=== PATIENT | female | born 1990 | race Caucasian/White ===

== ENCOUNTER 2020-09-18 09:59 | Outpatient (REF) | payer MEDICARE, MEDICAID, SELFPAY ==
[2020-09-18 11:27] LABS: MANUAL DIFF FLAG NO
[2020-09-18 11:38] LABS: Basophils Absolute Auto 0.1 X10*3/uL (0.0-0.2); Basophils Percent Auto 0.4 % (0-2); Eosinophils Absolute Auto 0.6 X10*3/uL (0.0-0.4); Eosinophils Percent Auto 4.9 % (0-4); Hematocrit 40.1 % (37-47); Hemoglobin 12.8 g/dl (12.0-16.0); Imm Gran Abs Auto 0.04 X10*3/uL (0.00-0.03); Imm Gran Pct Auto 0.3 % (0.0-0.4); Lymphocytes Absolute Auto 2.6 X10*3/uL (1.2-4.9); Lymphocytes Percent Auto 21.4 % (20-40); Mean Corpuscular HGB Conc 31.9 g/dl (31.0-35.0); Mean Corpuscular Hemoglobin 28.5 pg (27.0-33.0); Mean Corpuscular Volume 89.3 fL (80-98); Mean Platelet Volume 11.7 fL (9.4-12.3); Monocytes Absolute Auto 0.9 X10*3/uL (0.1-1.2); Monocytes Percent Auto 7.1 % (2-11); Neutrophils Absolute Auto 8.1 X10*3/uL (2.0-8.3); Neutrophils Percent Auto 65.9 % (45-73); Platelet Count 286 X10*3/uL (160-400); Red Blood Count 4.49 X10*6/uL (4.20-5.50); Red Cell Distribution Width 12.7 % (11.0-16.0); White Blood Count 12.3 X10*3/uL (4.8-10.8)
[2020-09-18 11:43] LABS: Estimated Average Glucose 94 mg/dL; Hemoglobin A1c % 4.9 %
[2020-09-18 12:07] LABS: Alanine Aminotransferase 35 U/L (0-31); Alkaline Phosphatase 95 U/L (39-117); Anion Gap 13 (12-20); Aspartate Amino Transferase 19 U/L (5-31); Bilirubin Total 0.8 mg/dL (0.0-1.0); Blood Urea Nitrogen 12 mg/dL (9-16); Calcium 8.9 mg/dL (8.4-10.2); Carbon Dioxide 29 mmol/L (22-29); Chloride 102 mmol/L (96-108); Cholesterol 181 mg/dL; Estimated Glomerular Filt Rate > 60; Glucose Fasting 86 mg/dL (60-99); HDL Cholesterol 49 mg/dL; LDL Cholesterol Calculated 114 mg/dl; Sodium 140 mmol/L (135-145); Total Protein 6.9 g/dL (6.5-8.0); Triglycerides 93 mg/dL
[2020-09-18 12:29] LABS: TSH reflex Free T4 1.83 mIU/mL (0.32-4.0); Vitamin D 25-OH Total 35.7 ng/mL (>30)
[2020-09-18 13:10] LABS: Folate 12.2 ng/mL (> or = 4.0); Vitamin B12 426 pg/mL (200-900)
== END 2020-09-18 10:00 | disposition home or self-care (01) ==
LOC: HO.HMGCLDS 09:59
PROVIDERS: PCP Internal Medicine; Visit Provider Internal Medicine
DX: Z00.01 Encounter for general adult medical examination with abnormal findings (principal); R14.0 Abdominal distension (gaseous); G47.19 Other hypersomnia; R53.83 Other fatigue; G47.33 Obstructive sleep apnea (adult) (pediatric); E66.01 Morbid (severe) obesity due to excess calories; K59.00 Constipation, unspecified; K21.9 Gastro-esophageal reflux disease without esophagitis; I10 Essential (primary) hypertension; L64.9 Androgenic alopecia, unspecified; E88.81 Metabolic syndrome and other insulin resistance; E55.9 Vitamin D deficiency, unspecified
CPT/HCPCS: 36415; 80053; 80061; 82306; 82607; 82746; 83036; 84443; 85025

== ENCOUNTER 2021-04-16 09:45 | Outpatient (REF) | payer MEDICARE, MEDICAID, SELFPAY ==
[2021-04-16 11:27] LABS: MANUAL DIFF FLAG NO
[2021-04-16 11:30] LABS: Basophils Percent Auto 0.4 % (0-2); Eosinophils Absolute Auto 0.2 X10*3/uL (0.0-0.4); Eosinophils Percent Auto 1.8 % (0-4); Hematocrit 39.4 % (37-47); Hemoglobin 12.4 g/dl (12.0-16.0); Imm Gran Abs Auto 0.04 X10*3/uL (0.00-0.03); Imm Gran Pct Auto 0.4 % (0.0-0.4); Lymphocytes Absolute Auto 2.8 X10*3/uL (1.2-4.9); Lymphocytes Percent Auto 24.7 % (20-40); Mean Corpuscular HGB Conc 31.5 g/dl (31.0-35.0); Mean Corpuscular Hemoglobin 27.5 pg (27.0-33.0); Mean Corpuscular Volume 87.4 fL (80-98); Monocytes Absolute Auto 0.7 X10*3/uL (0.1-1.2); Monocytes Percent Auto 6.2 % (2-11); Neutrophils Absolute Auto 7.6 X10*3/uL (2.0-8.3); Neutrophils Percent Auto 66.5 % (45-73); Platelet Count 269 X10*3/uL (160-400); Red Blood Count 4.51 X10*6/uL (4.20-5.50); Red Cell Distribution Width 13.2 % (11.0-16.0); White Blood Count 11.4 X10*3/uL (4.8-10.8)
[2021-04-16 12:02] LABS: Alanine Aminotransferase 26 U/L (0-31); Anion Gap 16 (12-20); Aspartate Amino Transferase 19 U/L (5-31); Blood Urea Nitrogen 10 mg/dL (9-16); Carbon Dioxide 24 mmol/L (22-29); Chloride 107 mmol/L (96-108); Cholesterol 168 mg/dL; Estimated Glomerular Filt Rate > 60; Glucose Fasting 87 mg/dL (60-99); HDL Cholesterol 46 mg/dL; LDL Cholesterol Calculated 100 mg/dl; Sodium 143 mmol/L (135-145); Triglycerides 113 mg/dL
== END 2021-04-16 09:46 | disposition home or self-care (01) ==
LOC: HO.HMGCLDS 09:45
PROVIDERS: Internal Medicine; PCP Internal Medicine; Visit Provider Internal Medicine
DX: E66.01 Morbid (severe) obesity due to excess calories (principal); E88.81 Metabolic syndrome and other insulin resistance; I10 Essential (primary) hypertension
CPT/HCPCS: 36415; 80048; 80061; 84450; 84460; 85025

== ENCOUNTER → 2021-08-21 15:33 | Outpatient (BNVA) | payer MEDICARE, MEDICAID, SELFPAY | PROVIDERS: PCP Internal Medicine; Referring Provider Internal Medicine; Visit Provider Nurse Practitioner | DX: K59.00 Constipation, unspecified (principal); K21.9 Gastro-esophageal reflux disease without esophagitis; K14.0 Glossitis | CPT/HCPCS: 99212 ==

== ENCOUNTER → 2021-08-31 12:33 | Outpatient (BNVA) | payer MEDICARE, MEDICAID, SELFPAY | PROVIDERS: PCP Internal Medicine; Visit Provider Advanced Practice Midwife ==

== ENCOUNTER 2021-12-17 09:37 | Outpatient (REF) | payer MEDICARE, MEDICAID, SELFPAY ==
[2021-12-17 15:44] LABS: CT PCR NOT DETECTED (Not Detect.); NG PCR NOT DETECTED (Not Detect.)
[2021-12-18 11:04] LABS: BV Int Neg Control Negative (Negative); BV Int Pos Control Positive (Positive)
[2021-12-19 20:51] LABS: HPV mRNA E6/E7 rflx Not Detected (Not Detected)
== END 2021-12-17 09:38 | disposition home or self-care (01) ==
LOC: HO.LAB 09:37
PROVIDERS: Visit Provider Advanced Practice Midwife
DX: Z01.419 Encounter for gynecological examination (general) (routine) without abnormal findings (principal); Z11.51 Encounter for screening for human papillomavirus (HPV); Z20.2 Contact with and (suspected) exposure to infections with a predominantly sexual mode of transmission
CPT/HCPCS: 81025; 87480; 87491; 87510; 87591; 87624; 87660; 88142

== ENCOUNTER 2021-12-31 09:48 | Outpatient (REF) | payer MEDICARE, MEDICAID, SELFPAY ==
[2021-12-31 11:24] LABS: MANUAL DIFF FLAG NO
[2021-12-31 11:35] LABS: Basophils Percent Auto 0.4 % (0-2); Eosinophils Absolute Auto 0.2 X10*3/uL (0.0-0.4); Eosinophils Percent Auto 2.2 % (0-4); Hematocrit 40.1 % (37.0-47.0); Hemoglobin 12.4 g/dl (12.0-16.0); Imm Gran Abs Auto 0.04 X10*3/uL (0.00-0.03); Imm Gran Pct Auto 0.4 % (0.0-0.4); Lymphocytes Absolute Auto 2.3 X10*3/uL (1.2-4.9); Lymphocytes Percent Auto 22.5 % (20-40); Mean Corpuscular HGB Conc 30.9 g/dl (31.0-35.0); Mean Corpuscular Hemoglobin 26.8 pg (27.0-33.0); Mean Corpuscular Volume 86.8 fL (80.0-98.0); Mean Platelet Volume 11.8 fL (9.4-12.3); Monocytes Absolute Auto 0.7 X10*3/uL (0.1-1.2); Monocytes Percent Auto 6.6 % (2-11); Neutrophils Percent Auto 67.9 % (45-73); Platelet Count 314 X10*3/uL (160-400); Red Blood Count 4.62 X10*6/uL (4.20-5.50); Red Cell Distribution Width 13.2 % (11.0-16.0); White Blood Count 10.3 X10*3/uL (4.8-10.8)
[2021-12-31 12:18] LABS: Vitamin D 25-OH Total 42.2 ng/mL (>30)
[2021-12-31 12:26] LABS: Alanine Aminotransferase 22 U/L (0-31); Anion Gap 11 (12-20); Aspartate Amino Transferase 37 U/L (5-31); Blood Urea Nitrogen 11 mg/dL (9-16); Calcium 9.4 mg/dL (8.4-10.2); Carbon Dioxide 32 mmol/L (22-29); Chloride 106 mmol/L (96-108); Cholesterol 159 mg/dL; Estimated Glomerular Filt Rate > 60; Glucose Fasting 97 mg/dL (60-99); HDL Cholesterol 42 mg/dL; LDL Cholesterol Calculated 91 mg/dl; Potassium 4.1 mmol/L (3.3-5.1); Sodium 145 mmol/L (135-145); Triglycerides 130 mg/dL
[2021-12-31 12:47] LABS: Vitamin B12 1493 pg/mL (200-900)
== END 2021-12-31 09:49 | disposition home or self-care (01) ==
LOC: HO.LAB 09:48
PROVIDERS: PCP Internal Medicine; Visit Provider Internal Medicine
DX: Z00.01 Encounter for general adult medical examination with abnormal findings (principal); R53.83 Other fatigue; E66.01 Morbid (severe) obesity due to excess calories; K59.00 Constipation, unspecified; I10 Essential (primary) hypertension; K21.9 Gastro-esophageal reflux disease without esophagitis; E88.81 Metabolic syndrome and other insulin resistance
CPT/HCPCS: 36415; 80048; 80061; 82306; 82607; 82746; 84450; 84460; 85025

== ENCOUNTER → 2022-04-09 13:08 | Outpatient (BNVA) | payer MEDICARE, MEDICAID, SELFPAY | PROVIDERS: PCP Internal Medicine; Visit Provider Surgery | DX: D18.00 Hemangioma unspecified site (principal) | CPT/HCPCS: 99202 ==

== ENCOUNTER 2022-05-10 07:17 | Outpatient (REF) | payer MEDICARE, MEDICAID, SELFPAY ==
[2022-05-10 07:51] VITALS: BP 133/84; PULSE 75; RESP 18; TEMP 36.6; O2SAT 98; BMI 55.8
--- NOTE | 2022-05-10 08:51 | P.OP_ITS ---
Operative Note Operative Note Date of Service: 05/10/22 Narrative: Preoperative diagnosis: Right scalp lesion x3, chest lesion x1 Postoperative diagnosis: Same Procedure: Excision of scalp lesion x3 and chest lesion x1 Surgeon: Ifeanyi Rasmussen MD Ride Mechanic: No physician Anesthesia: Local Indications for procedure: 32-year-old female patient presenting with 3 brown raised and irritated skin lesions with a wide base located in the right scalp 1 located in the frontal scalp 2nd located over the zoroastrianism parietal region in the 3rd located in the occipital region each lesion measured 5 mm in diameter. Lesion of the chest is red and tender to palpation measuring 0.7 mm in diameter. Operative findings: Lesions as noted above Specimen: Scalp lesion x3 right side on chest lesion x1 Estimated blood loss: 2 mL Complications: None Procedure details: Patient was brought to the minor surgery suite placed in a supine position. After assuring informed consent and confirming the site of surgery in the right scalp in mid chest, the skin was prepped with Betadine and draped in a sterile fashion. Beginning in the frontal scalp local anesthesia was infiltrated around the lesion. Elliptical incision was then created with a scalpel carried out through subcutaneous tissue. The lesion was excised and sent to pathology for further examination. Skin was closed using a single 4-0 nylon suture. The temporoparietal lesion was then anesthetized in a similar fashion an elliptical incision made around the lesion. Skin was then closed using interrupted 4-0 nylon suture. The anterior mid chest lesion was also prepped with Betadine and draped in a sterile fashion. Local was infiltrated around the lesion elliptical incision created in a transverse fashion. Lesion was excised in the wounds closed with 2 interrupted 4-0 nylon sutures. The patient's head was then turned to the left and the posterior/occipital lesion prepped with Betadine and draped in a sterile fashion. This was then anesthetized with lidocaine 1%. Elliptical incision was then made oriented longitudinally. This was then carried out through subcutaneous tissue and around the lesion. Skin was then closed using interrupted 3-0 Prolene sutures. Bacitracin was applied to the 3 scalp lesions. The chest lesion was chest would with 2 x 2 gauze and Tegaderm. The patient tolerated the procedure well. Was subsequently discharged to home in stable condition.
== END 2022-05-10 07:18 | disposition home or self-care (01) ==
LOC: HO.MS 07:17
PROVIDERS: PCP Internal Medicine; Visit Provider Surgery
PROC: (CPT 11401; principal; 2022-05-10 08:00)
DX: D18.01 Hemangioma of skin and subcutaneous tissue (principal); D23.4 Other benign neoplasm of skin of scalp and neck
CPT/HCPCS: 11401; 11420 ×3; 88304; 88305

== ENCOUNTER → 2022-08-30 14:02 | Outpatient (BNVA) | payer MEDICARE, MEDICAID, SELFPAY | PROVIDERS: PCP Internal Medicine; Visit Provider Nurse Practitioner | DX: K21.9 Gastro-esophageal reflux disease without esophagitis (principal); K59.04 Chronic idiopathic constipation; R14.0 Abdominal distension (gaseous) | CPT/HCPCS: 99212 ==

== ENCOUNTER 2022-12-30 10:01 | Outpatient (REF) | payer MEDICARE, MEDICAID, SELFPAY ==
[2022-12-30 14:57] LABS: CT PCR NOT DETECTED (Not Detect.); NG PCR NOT DETECTED (Not Detect.)
[2022-12-31 12:29] LABS: BV Int Neg Control Negative (Negative); BV Int Pos Control Positive (Positive)
[2023-01-02 00:54] LABS: HPV mRNA E6/E7 rflx Not Detected (Not Detected)
== END 2022-12-30 10:02 | disposition home or self-care (01) ==
LOC: HO.LNP 10:01
PROVIDERS: PCP Internal Medicine; Visit Provider Advanced Practice Midwife
DX: Z01.419 Encounter for gynecological examination (general) (routine) without abnormal findings (principal); Z11.51 Encounter for screening for human papillomavirus (HPV); Z20.2 Contact with and (suspected) exposure to infections with a predominantly sexual mode of transmission; E66.01 Morbid (severe) obesity due to excess calories; G47.33 Obstructive sleep apnea (adult) (pediatric)
CPT/HCPCS: 0353U; 87480; 87510; 87624; 87660; 88142

== ENCOUNTER 2023-04-15 14:15 | Outpatient (REF) | payer MEDICARE, MEDICAID, SELFPAY ==
[2023-04-15 16:37] LABS: MANUAL DIFF FLAG NO
[2023-04-15 16:43] LABS: Basophils Absolute Auto 0.1 X10*3/uL (0.0-0.2); Basophils Percent Auto 0.5 % (0-2); Eosinophils Absolute Auto 0.1 X10*3/uL (0.0-0.4); Eosinophils Percent Auto 0.9 % (0-4); Hematocrit 41.2 % (37.0-47.0); Imm Gran Abs Auto 0.03 X10*3/uL (0.00-0.03); Imm Gran Pct Auto 0.3 % (0.0-0.4); Lymphocytes Absolute Auto 2.2 X10*3/uL (1.2-4.9); Lymphocytes Percent Auto 21.2 % (20-40); Mean Corpuscular HGB Conc 31.6 g/dl (31.0-35.0); Mean Corpuscular Hemoglobin 27.9 pg (27.0-33.0); Mean Corpuscular Volume 88.4 fL (80.0-98.0); Mean Platelet Volume 12.7 fL (9.4-12.3); Monocytes Absolute Auto 0.5 X10*3/uL (0.1-1.2); Monocytes Percent Auto 4.6 % (2-11); Neutrophils Absolute Auto 7.6 x10*3/uL (2.0-8.3); Neutrophils Percent Auto 72.5 % (45-73); Platelet Count 281 X10*3/uL (160-400); Red Blood Count 4.66 X10*6/uL (4.20-5.50); White Blood Count 10.5 X10*3/uL (4.8-10.8)
[2023-04-15 17:19] LABS: TSH reflex Free T4 1.41 uIU/mL (0.32-4.0)
[2023-04-15 17:34] LABS: Folate 9.4 ng/mL (> or = 4.0); Vitamin B12 679 pg/mL (200-900)
== END 2023-04-15 14:16 | disposition home or self-care (01) ==
LOC: HO.HMGCLDS 14:15
PROVIDERS: PCP Internal Medicine; Visit Provider Internal Medicine
DX: R20.0 Anesthesia of skin (principal); R79.89 Other specified abnormal findings of blood chemistry
CPT/HCPCS: 36415; 82306; 82607; 82746; 84443; 85025

== ENCOUNTER 2023-06-04 09:41 | Outpatient (REF) | payer MEDICARE, MEDICAID, SELFPAY ==
--- NOTE | 2023-06-04 | EMG_ITS ---
Please see scanned EMG / Nerve Conduction Report. MTDD
== END 2023-06-04 09:42 | disposition home or self-care (01) ==
LOC: HO.NEURO 09:41
PROVIDERS: PCP Internal Medicine; Visit Provider Internal Medicine
DX: R20.0 Anesthesia of skin (principal)
CPT/HCPCS: 95860; 95885; 95907; 95911

== ENCOUNTER 2023-06-19 12:53 | Outpatient (AMB) | payer MEDICARE, MEDICAID, SELFPAY ==
--- NOTE | 2023-06-19 13:06 | A.OFFPC_ITS ---
Intake Visit Reasons: AWV Allergies topiramate [From TOPAMAX] Adverse Reaction (Severe, Verified 04/15/23 13:58) ELEVATED LIVER ENZYMES dogs, cats, trees Allergy (Unknown, Uncoded 04/15/23 13:58) Unknown surgical tape Allergy (Unknown, Uncoded 04/15/23 13:58) rash Tobacco use date assessed: 04/15/23 [facility] Medical History (Updated 04/28/23 @ 01:03 by Lizz Morse MD) Anal fissure Androgenic alopecia Constipation Depression with anxiety Environmental and seasonal allergies Essential hypertension Excessive daytime sleepiness Fatigue GERD (gastroesophageal reflux disease) Intertrigo Learning disability Metabolic syndrome X Mild intermittent asthma Morbid obesity Numbness of left lower extremity BRIANA (obstructive sleep apnea) Surgical History History of excision of lesion (05/10/22) History of tubal ligation History of wisdom tooth extraction Hx of cholecystectomy Family History Father Unknown family medical history Mother Cervical cancer Maternal Grandfather Lung disease Maternal Grandmother HTN (hypertension) CAD (coronary artery disease) CVD (cardiovascular disease) Smoker Myocardial infarction Paternal Grandfather Unknown family medical history Paternal Grandmother Unknown family medical history Sister No problems noted. Sister No problems noted. Sister No problems noted. Sister No problems noted. Social History Household Members: Friend(s) Housing: Apartment Alcohol intake: current Alcohol intake frequency: holidays/special occasions only Patient Tobacco Use Status: Never used Tobacco e-Cigarette/Vaping Use: Never Used Second Hand Smoke Exposure: No Current occupational status: unemployed and disabled Cognitive needs: No Hearing needs: No Vision needs: No Female Reproductive History Menstrual Age of Menarche: 9 Questionnaire Thrive Questionnaire Date Thrive assessed: 12/12/21 ELMER-7 AMB Questionnaire ELMER-7 Date ELMER - 7 assessed: 12/12/21 Source: Developed by Drs. Dario Ramos, Pinky De Jesus, Geo Calero and colleagues, with an educational alberto from [employer]. Physical exam (Primary Care) Tobacco/Smoking Status: Tobacco use Status Tobacco use date assessed 04/15/23 04/15/23 13:53 Patient Tobacco Use Status Never used Tobacco 04/15/23 13:53 e-Cigarette/Vaping Use Never Used 04/15/23 13:53 Thrive Assessment: Date of Thrive Assessment Date Thrive assessed 12/12/21 04/15/23 13:53 Coding Diagnoses
--- NOTE | 2023-06-19 13:07 | A.OFFVIS_ITS ---
Intake Vital Signs 06/19/23 13:08 Height 5 ft Weight 263 lb BMI 51.4 BP 118/78 Blood Pressure Location Lt brachial Position Sitting Pulse 90 Pulse Source Pulse Oximeter Pulse Oximetry (%) 99 Oxygen Delivery Method Room Air Intake Visit Reasons: AWV Allergies topiramate [From TOPAMAX] Adverse Reaction (Severe, Verified 06/19/23 13:23) ELEVATED LIVER ENZYMES dogs, cats, trees Allergy (Unknown, Uncoded 06/19/23 13:23) Unknown surgical tape Allergy (Unknown, Uncoded 06/19/23 13:23) rash Medication List - Last Reconciled 06/19/23 by Lizz Morse MD albuterol sulfate 90 mcg/actuation 2 puffs inhalation Q4-6H PRN amlodipine 10 mg PO BEDTIME atenolol 25 mg PO DAILY cholecalciferol (vitamin D3) 25 mcg PO DAILY fluoxetine 20 mg PO QAM fluticasone propion-salmeterol 250-50 mcg/dose 1 ea inhalation BID inhalational spacing device (BreatheRite MDI Spacer) As directed lisinopril 10 mg PO DAILY lubiprostone (Amitiza) 8 mcg PO BID melatonin 12 mg PO BEDTIME PRN montelukast 10 mg PO DAILY multivitamin 1 tab PO DAILY simethicone 180 mg PO QID 30 days Do you need a note to return to daycare/school/sports/work: No HPI AWV HPI Details AWV ?33 year old lady presents today for her ? Annual Wellness Visit, in itial visit.? She is accompanied today by her caregiver who works for [employer]. She is up-to-date with her cholesterol screening, last done 12/11/2021 with normal findings, she also had the diabetes screening done at that time again with normal findings. She goes to Sharmaine Bailey at [facility] for routine Pap and pelvic exam, last done 12/30/2022 with benign findings. She is up-to-date with her COVID vaccine, advised to get the new booster, gets yearly flu shots, up-to-date with her pneumo fax 23 vaccination and Tdap. ? Medical / Social History Reviewed? Past Medical History ?Yes . ? [place] of Care / Care Team list updated ?Yes . ? Surgical/Hospitalization History ?Yes . ? Current Medications (including OTC and supplements) ?Yes . ? Family History ?Yes . ? Tobacco Control form ?Yes . ? AUDIT-C (Alcohol use) form ?Yes . ? Illicit drug use in Social History ?Yes . ? Current diagnosis of depression? yes, with mood depressed over the last several weeks due to cup with boyfriend. They are having a problem with patient communicating with somebody overseas who is taking advantage for an asking her for money. Patient gets very upset when they warn her against him. She is currently not being seen by therapist, , as she has refused to see 1 in the past. ? Appropriate PHQ2/PHQ9 completed ?Yes . ? Data entered by ?Horticultural Agent and reviewed by provider ? Fall Risk ? Fall History? Have you had any falls with injury in the past year? ?No . ? Have you had two or more falls in the past year? ?No . ? Fall Risk Assessment: ?No falls in the past year . ? HRA filled out by the patient, reviewed by Provider and scanned. ?? AWV ? Balance? Romberg ?Yes . ? Tandem walk ?Yes . ? Walk and Turn ?Yes . ? Rise from sit to stand ?Yes . ?Vision? Corrective lens ?none ? Vision screen ? Up-to-date, unable to recall eye doctor seen ?Hearing? Whisper test ?pass . ?Written Plan?Completed. See Patient Documents.? [facility] Medical History (Updated 06/19/23 @ 14:02 by Lizz Morse MD) Anal fissure Androgenic alopecia Constipation Depression with anxiety Environmental and seasonal allergies Essential hypertension Excessive daytime sleepiness Fatigue GERD (gastroesophageal reflux disease) Intertrigo Learning disability Metabolic syndrome X Mild intermittent asthma Morbid obesity Numbness of left lower extremity BRIANA (obstructive sleep apnea) Surgical History History of excision of lesion (05/10/22) History of tubal ligation History of wisdom tooth extraction Hx of cholecystectomy Family History Father Unknown family medical history Mother Cervical cancer Maternal Grandfather Lung disease Maternal Grandmother HTN (hypertension) CAD (coronary artery disease) CVD (cardiovascular disease) Smoker Myocardial infarction Paternal Grandfather Unknown family medical history Paternal Grandmother Unknown family medical history Sister No problems noted. Sister No problems noted. Sister No problems noted. Sister No problems noted. Social History Household Members: Friend(s) Housing: Apartment Alcohol intake: current Alcohol intake frequency: holidays/special occasions only Patient Tobacco Use Status: Never used Tobacco e-Cigarette/Vaping Use: Never Used Second Hand Smoke Exposure: No Current occupational status: unemployed and disabled Cognitive needs: No Hearing needs: No Vision needs: No Female Reproductive History Menstrual Age of Menarche: 9 Questionnaire Medicare Wellness Checkup What gender do you identify with?: female During the past 4 weeks, how much have you been bothered by emotional problems such as feeling anxious, depressed, irritable, sad or downhearted, and blue?: slightly During the past 4 weeks, has your physical & emotional health limited your social activities with family, friends, neighbors, or groups?: slightly During the past 4 weeks, how much bodily pain have you generally had?: no pain During the past 4 weeks, was someone available to help you if you needed & wanted help?: yes, as much as I wanted During the past 4 weeks, what was the hardest physical activity you could do for at least 2 minutes?: very heavy Can you get to places out of walking distance without help? (For eg., can you travel alone on buses, taxis or drive your car?): Yes Can you go shopping for groceries or clothes without someone's help?: No Can you prepare your own meals?: Yes Can you do your housework without help?: Yes Because of any health problems, do you need the help of another person with your personal care needs such as eating, bathing, dressing or getting around the house?: No Can you handle your own money without help?: No During the past 4 weeks, how would you rate your health in general?: very good During the past 4 weeks how have things been going for you?: pretty well Are you having difficulties driving your car?: not applicable, I don't use a car Do you always fasten your seat belt when you are in a car?: yes, usually During past 4 weeks, have you been bothered by the following: never: Falling or dizzy when standing up, Problems using the telephone? and Tiredness or fatigue?, seldom: Teeth or denture problems? and sometimes: Trouble eating well? Have you fallen 2 or more times in the past year?: No Are you afraid of falling?: No Are you a smoker?: no During the past 4 weeks, how many drinks of wine, beer, or other alcoholic beverages did you have?: no alcohol at all Do you exercise for about 20 minutes 3 or more times a week?: yes, some of the time Have you been given information to help with the following?: yes: Hazards in your house that might hurt you? and yes: Keeping track of your medications? How often do you have trouble taking medicines the way you have been told to take them?: I always take medicine as prescribed How confident are you that you can control & manage most of your health problems?: somewhat confident What is your race?: Mini Mental State Exam (MMSE) Orientation What is the (year) (season) (date) (day) (month)?: year (Unable to state), season (summer), date (Unable to state), day (Unable to state) and month (Unable to state) Where are we (state) (county) (town or city) (hospital) (floor)?: state, county (Unable to state), town or city (Unable to state) and hospital/clinic (Unable to state) Score Score: 9 Activity of Daily Living Bathing - sponge bath, tub bath or shower: receives no assistance (gets in/out by self, if usual bathing means Dressing - getting clothes from closets & drawers, including inner/outer garments & fasteners.: gets clothes & gets completely dressed without help Toileting - going to the 'toilet room' for urine/bowel elimination & cleaning self/arranging clothes: goes to toilet room, cleans self, arranges clothes without help Transfer: moves in & out of bed and chair without help (may use support object) Continence: controls urination/bowel movements completely by self Feeding: feeds self without help Total Score: 0 Information obtained from: patient Using telephone: dependent Traveling: dependent Shopping: dependent Preparing meals: needs assistance Housework: needs assistance Taking medicine: dependent Managing money: dependent PHQ-9 Over the last 2 weeks, how often have you been bothered by any of the following problems? 1. Little interest or pleasure in doing things: several days 2. Feeling down, depressed, or hopeless: nearly every day 3. Trouble falling or staying asleep, or sleeping too much: nearly every day 4. Feeling tired or having little energy: nearly every day 5. Poor appetite or overeating: nearly every day 6. Feeling bad about yourself - or that you are a failure or have let yourself or your family down: nearly every day 7. Trouble concentrating on things, such as reading the newspaper or watching television: several days 8. Moving or speaking so slowly that other people could have noticed. Or the opposite - being so fidgety or restless that you have been moving around a lot more than usual: not at all 9. Thoughts that you would be better off or of hurting yourself in some way: not at all Total score: 17 Depression Screening Interpretation: Positive Depression Screening Follow-up: Community Mental Health Worker F/U [id number] - PHQ-9 Billing: Yes Source: Developed by Drs. Dario Ramos, Pinky De Jesus, Geo Calero and colleagues, with an educational alberto from [employer]. Physical Exam Vital Signs: Last Vital Signs Pulse 90 06/19/23 13:08 BP 118/78 06/19/23 13:08 Pulse Ox 99 06/19/23 13:08 Oxygen Delivery Method Room Air 06/19/23 13:08 BMI result Body Mass Index 51.4 Assessment & Plan Assessment & Plan (1) Encounter for initial annual wellness visit (AWV) in Medicare patient: Code(s): Z00.00 - Encounter for general adult medical examination without abnormal findings Plan: Medical wellness checklist discussed with patient caregiver reviewed and updated. Requested copy of any healthcare proxy or power of compliance attorney form from her guardian, to be scanned into medical record. (2) Metabolic syndrome X: Code(s): E88.81 - Metabolic syndrome (3) Androgenic alopecia: Comment: followed by Dr. Reed Code(s): L64.9 - Androgenic alopecia, unspecified Plan: Currently seen by dermatology (4) Essential hypertension: Comment: followed by Dr. Robb Code(s): I10 - Essential (primary) hypertension Plan: Continue on lisinopril 10 mg daily (5) Mild intermittent asthma: Code(s): J45.20 - Mild intermittent asthma, uncomplicated Qualifiers: Asthma complication type: uncomplicated Qualified Code(s): J45.20 - Mild intermittent asthma, uncomplicated Plan: Continue with fluticasone propionate-salmeterol inhaler 1 inhalation twice a day and on albuterol sulfate inhaler to be used as rescue for episodes of bronchospasm and wheezing (6) Constipation: Comment: started on Amitiza by February Harshal Code(s): K59.00 - Constipation, unspecified Plan: On Amitiza, followed by GI (7) Learning disability: Code(s): F81.9 - Developmental disorder of scholastic skills, unspecified (8) BRIANA (obstructive sleep apnea): Code(s): G47.33 - Obstructive sleep apnea (adult) (pediatric) (9) Morbid obesity: Code(s): E66.01 - Morbid (severe) obesity due to excess calories (10) Depression with anxiety: Code(s): F41.8 - Other specified anxiety disorders Plan: On fluoxetine, not controlled at present time, referred to [facility] Sharmaine Flores for assistance in getting in to be seen by therapist and psychiatry Quality Reporting (2019) Depression/Bipolar (159/160/161/177) PHQ-9: Total score: 17 Coding Level of Care Code Medicare First (G0438) Diagnoses Encounter for initial annual wellness visit (AWV) in Medicare patient Z00.00 Metabolic syndrome X E88.81 Androgenic alopecia L64.9 Essential hypertension I10 Mild intermittent asthma J45.20 Asthma complication type: uncomplicated Constipation K59.00 Learning disability F81.9 BRIANA (obstructive sleep apnea) G47.33 Morbid obesity E66.01 Depression with anxiety F41.8 CPT Codes Advance Care Planning - Time spent: 1-15 minutes, not on file ([id number]) Advance Care Planning Advance Care Planning discussion: Exists, not on file Date of discussion: 06/19/23 Who was present: Patient and caregiver Forms completed: None (Caregiver states that she will just provide us a copy of healthcare proxy.) Time spent: 1-15 minutes, not on file Actual minutes spent: 15
[2023-06-19 13:08] VITALS: BP 118/78; PULSE 90; O2SAT 99; BMI 51.4
== END 2023-06-19 14:10 | disposition home or self-care (01) ==
LOC: HO.HMGC 12:53
PROVIDERS: PCP Internal Medicine; Visit Provider Internal Medicine
DX: Z00.00 Encounter for general adult medical examination without abnormal findings (principal); I10 Essential (primary) hypertension; E66.01 Morbid (severe) obesity due to excess calories; Z68.43 Body mass index [BMI] 50.0-59.9, adult; J45.20 Mild intermittent asthma, uncomplicated; F41.8 Other specified anxiety disorders; E88.81 Metabolic syndrome and other insulin resistance; L64.9 Androgenic alopecia, unspecified; K59.00 Constipation, unspecified; F81.9 Developmental disorder of scholastic skills, unspecified; G47.33 Obstructive sleep apnea (adult) (pediatric)
CPT/HCPCS: 1124F; G0438

== ENCOUNTER 2023-08-20 11:55 | Outpatient (AMB) | payer MEDICARE, MEDICAID, SELFPAY ==
[2023-08-20 12:04] VITALS: BP 107/70; PULSE 66; BMI 49.0
--- NOTE | 2023-08-20 12:04 | A.OFFVIS_ITS ---
Intake Vital Signs 08/20/23 12:04 Height 5 ft Weight 250 lb 14.177 oz BMI 49.0 BP 107/70 Blood Pressure Location Rt brachial Position Sitting Pulse 66 Intake Visit Reasons: follow up missed March appt Intake Note: Patient presents to in office visit today in follow up of GERD. CC: Pt reports doing well today and denies having any GI issues or concerns. Quality Rep Required: No Accompanied by: Family/Other Allergies topiramate [From TOPAMAX] Adverse Reaction (Severe, Verified 08/20/23 12:06) ELEVATED LIVER ENZYMES dogs, cats, trees Allergy (Unknown, Uncoded 06/19/23 13:23) Unknown surgical tape Allergy (Unknown, Uncoded 06/19/23 13:23) rash HPI follow up missed March appt HPI Details Assessment & Plan (1) GERD (gastroesophageal reflux diseas e): Code(s): K21.9 - Gastro-esophageal reflux disease without esophagitis Plan: She is here today with a female friend who is supportive. She continues to do well on her amitiza 8mcg bid and her protonix bid. The only new problem is an abscess of her tooth, which will be pulled soon ROV 6 mos (2) Constipation: Comment: started on Amitiza by February Code(s): K59.00 - Constipation, unspecified Medications: Refilled lubiprostone (Pedro zuleima) 8 mcg PO BID 56 c aps 6RF K59.00 - Constipat ion, unspecified simethicone aft er meals 180 mg PO QID 30 days 120 caps 3RF R14.0 - Abdominal distension (gaseou s) Discontinued pantoprazole Di scontinued Reason: Doctor's Order 40 mg PO BID 60 t abs 1RF K21.9 - Gastro-eso phageal reflux dis ease without esoph agitis TODAY'S VISIT NO changes she continues to do well on her protonix bid, Amitiza 8mcg and simethicone. ROV 6 mos. [facility] Medical History (Updated 06/19/23 @ 14:02 by Lizz Morse MD) Environmental and seasonal allergies Numbness of left lower extremity Depression with anxiety Intertrigo Excessive daytime sleepiness Fatigue BRIANA (obstructive sleep apnea) Morbid obesity Anal fissure Constipation Learning disability GERD (gastroesophageal reflux disease) Mild intermittent asthma Essential hypertension Androgenic alopecia Metabolic syndrome X Surgical History History of excision of lesion (05/10/22) History of tubal ligation History of wisdom tooth extraction Hx of cholecystectomy Family History Father Unknown family medical history Mother Cervical cancer Maternal Grandfather Lung disease Maternal Grandmother HTN (hypertension) CAD (coronary artery disease) CVD (cardiovascular disease) Smoker Myocardial infarction Paternal Grandfather Unknown family medical history Paternal Grandmother Unknown family medical history Sister No problems noted. Sister No problems noted. Sister No problems noted. Sister No problems noted. Social History Household Members: Friend(s) Housing: Apartment Alcohol intake: current Alcohol intake frequency: holidays/special occasions only Patient Tobacco Use Status: Never used Tobacco e-Cigarette/Vaping Use: Never Used Second Hand Smoke Exposure: No Current occupational status: unemployed and disabled Cognitive needs: No Hearing needs: No Vision needs: No Female Reproductive History Menstrual Age of Menarche: 9 Review of Systems Const Denies fatigue, Denies fever(s), Denies night sweats, Denies poor appetite and Denies weight loss ENT Reports Normal hearing present, Denies dental pain, Denies dysphagia, Denies hearing loss, Denies mouth pain, Denies odynophagia, Denies throat swelling, Denies tongue swelling and Reports other (Dentition adequate) Card Reports no additional complaints Resp Reports no additional complaints GI Denies abdominal pain, Denies melena, Denies bloating, Denies hematochezia, Reports constipation, Denies GI cramping, Denies dysphagia, Denies excessive flatus, Denies early satiety, Reports heartburn, Denies diarrhea, Denies nausea, Denies odynophagia, Denies vomiting and Denies hematemesis Skin/Breast Denies pruritus, Denies lesions, Denies rash and Denies jaundice Neuro Reports Normal hearing present and Denies Abnormal speech present Endo Denies fatigue Aller/Immun Denies throat swelling and Denies tongue swelling Physical Exam Vital Signs: Last Vital Signs Pulse 66 08/20/23 12:04 BP 107/70 08/20/23 12:04 BMI result Body Mass Index 49.0 Const General: cooperative, no acute distress, well developed and well groomed Nutritional Appearance: well nourished and obese morbidly obese Orientation/consciousness: oriented to person, oriented to place and oriented to time Limitations: No language barrier and other limitations (Low cognitive function) HEENT Head: Yes normocephalic and Yes atraumatic Eyes General: appearance normal, both eyes and all related structures Pupils: Equal, round and reactive pupils present Neck Neck: Yes normal visual inspection and Yes no lymphadenopathy Thyroid: Thyroid normal Resp Effort & Inspection: normal respiratory effort and able to speak in complete sentences Auscultation: clear to auscultation bilaterally Cardio Rate: regular rate Rhythm: regular rhythm Heart sounds: Normal, physiologic split S2 sound present Peripheral pulses: radial pulses present and posterior tibial pulses present GI Inspection: No distended, Yes Abdominal panniculus present and Yes obesity Palpation (GI): Soft to palpation, nontender, no guarding, not rigid and No hepatosplenomegaly present Percussion: Yes normal to percussion Auscultation: normal bowel sounds Rectal Exam - Female: deferred Skin General skin exam: no rashes or lesions noted, turgor normal, skin not dry, no jaundice, No spider nevi and no striae Rashes: no rashes Nails: normal Neuro General: oriented to person, oriented to place and oriented to time Cranial nerves: Yes Equal, round and reactive pupils present and Yes Normal hearing present Speech: No Abnormal speech present Extrem General: Yes normal to inspection, No clubbing, No cyanosis and No edema Psych Appearance: grossly normal and well kempt Mental Status: mental status grossly normal Speech and movement: Normal speech and movement present Affect: normal affect Attitude: cooperative Thought process: not confabulating and Impoverished thought process present Thought content: Normal thought content present Insight: Poor insight present (Psych) Judgement: Poor judgement present (Psych) Assessment & Plan Assessment & Plan (1) Constipation: Comment: started on Amitiza by February Caputo Code(s): K59.00 - Constipation, unspecified Plan: NO changes she continues to do well on her protonix bid, Amitiza 8mcg and simethicone. The only problem is that her pantoprazole keeps getting discontinued off of her medication list but the person with her confirms that she still taking it twice a day. ROV 6 mos. (2) GERD (gastroesophageal reflux disease): Code(s): K21.9 - Gastro-esophageal reflux disease without esophagitis Medications: New pantoprazole (Protonix) 40 mg PO BID 30 days 60 tabs 6RF K21.9 - Gastro- esophageal reflux disease without esophagitis Refilled lubiprostone (Amitiza) 8 mcg PO BID 56 caps 6RF K59.00 - Constipation, unspecified simethicone after meals 180 mg PO QID 30 days 120 caps 6RF R14.0 - Abdominal distension (gaseous) Coding Level of Care Code Est Pt Level 3 (41693) Diagnoses Constipation K59.00 GERD (gastroesophageal reflux disease) K21.9
== END 2023-08-20 12:20 | disposition home or self-care (01) ==
PROVIDERS: PCP Internal Medicine; Visit Provider Nurse Practitioner
DX: K59.00 Constipation, unspecified (principal); K21.9 Gastro-esophageal reflux disease without esophagitis
CPT/HCPCS: 99213

== ENCOUNTER → 2023-08-20 11:55 | Outpatient (BNVA) | payer MEDICARE, MEDICAID, SELFPAY | PROVIDERS: PCP Internal Medicine; Visit Provider Nurse Practitioner | DX: K59.00 Constipation, unspecified (principal); K21.9 Gastro-esophageal reflux disease without esophagitis | CPT/HCPCS: 99212 ==

== ENCOUNTER 2024-01-07 10:32 | Outpatient (REF) | payer MEDICARE, MEDICAID, SELFPAY ==
[2024-01-08 04:31] LABS: CT PCR NOT DETECTED (Not Detect.); NG PCR NOT DETECTED (Not Detect.)
[2024-01-08 11:11] LABS: BV Int Neg Control Negative (Negative); BV Int Pos Control Positive (Positive)
== END 2024-01-07 10:33 | disposition home or self-care (01) ==
LOC: HO.LNP 10:32
PROVIDERS: PCP Internal Medicine; Visit Provider Advanced Practice Midwife
DX: Z01.419 Encounter for gynecological examination (general) (routine) without abnormal findings (principal); Z20.2 Contact with and (suspected) exposure to infections with a predominantly sexual mode of transmission
CPT/HCPCS: 0353U; 87480; 87510; 87660; G0101

== ENCOUNTER 2024-01-07 10:32 | Outpatient (AMB) | payer MEDICARE, MEDICAID, SELFPAY ==
[2024-01-07 10:35] VITALS: BP 138/74; BMI 48.4
--- NOTE | 2024-01-07 10:35 | MHC.OFFVIS ---
Intake Vital Signs 01/07/24 10:35 Height 5 ft Weight 248 lb BMI 48.4 BP 138/74 Blood Pressure Location Rt brachial Position Sitting Intake Visit Reasons: Annual Intake Note: Pt presents to the office today for an annual visit. Pt states she is feeling well and would like to be tested for GC,BV just to be sure. Accompanied by: manager case management(Flor) Allergies topiramate [From TOPAMAX] Adverse Reaction (Severe, Verified 01/07/24 10:53) ELEVATED LIVER ENZYMES dogs, cats, trees Allergy (Unknown, Uncoded 01/07/24 10:53) Unknown surgical tape Allergy (Unknown, Uncoded 01/07/24 10:53) rash Medication List - Last Reconciled 01/07/24 by Sharmaine Bailey CNM albuterol sulfate 90 mcg/actuation 2 puffs inhalation Q4-6H PRN amlodipine 10 mg PO BEDTIME atenolol 25 mg PO DAILY cholecalciferol (vitamin D3) 25 mcg PO DAILY fluoxetine 20 mg PO QAM fluticasone propion-salmeterol 250-50 mcg/dose 1 ea inhalation BID inhalational spacing device (BreatheRite MDI Spacer) As directed lisinopril 10 mg PO DAILY lubiprostone (Amitiza) 8 mcg PO BID melatonin 12 mg PO BEDTIME PRN montelukast 10 mg PO DAILY multivitamin 1 tab PO DAILY pantoprazole (Protonix) 40 mg PO BID 30 days simethicone 180 mg PO QID 30 days Is last menstrual period known: Yes Last menstrual period: 12/29/23 Post menopausal: No Patient : No HPI Annual HPI Details Patient is here with her manager case management for a shoe folder visit. She does not need a Pap smear this year as her last 1 was negative. She has no longer sexually active but she would like to be tested for STIs she believes she has lost a lot of weight she is trying to eat well and limit her portions and do exercise with Tamara and 1 of her shoe parts caser and also with TB in her room. She recently got her hair done in her nails and she is feeling good about herself and her shoe parts caser are helping her to re design her room so she has room to exercise in her own room. She wanted to bring up that she was interested in something to make her periods better she used to be on Depo-Provera in the past and was on it for about 7 years according to her manager case management. Her manager case management also shared that she had had her tubes tied for control but it is her periods that are challenging they cause her to be crampy and not feel good and not feel good. [facility] Medical History (Updated 01/07/24 @ 13:18 by Sharmaine Bailey CNM) Well woman exam with routine gynecological exam Environmental and seasonal allergies Numbness of left lower extremity Depression with anxiety Intertrigo Excessive daytime sleepiness Fatigue BRIANA (obstructive sleep apnea) Morbid obesity Anal fissure Constipation Learning disability GERD (gastroesophageal reflux disease) Mild intermittent asthma Essential hypertension Androgenic alopecia Metabolic syndrome X Surgical History (Updated 01/07/24 @ 11:35 by Sharmaine Bailey CNM) History of excision of lesion (05/10/22) History of tubal ligation History of wisdom tooth extraction Hx of cholecystectomy Family History Father Unknown family medical history Mother Cervical cancer Maternal Grandfather Lung disease Maternal Grandmother HTN (hypertension) CAD (coronary artery disease) CVD (cardiovascular disease) Smoker Myocardial infarction Paternal Grandfather Unknown family medical history Paternal Grandmother Unknown family medical history Sister No problems noted. Sister No problems noted. Sister No problems noted. Sister No problems noted. Social History Household Members: Friend(s) Housing: Apartment Alcohol intake: current Alcohol intake frequency: holidays/special occasions only Patient Tobacco Use Status: Never used Tobacco e-Cigarette/Vaping Use: Never Used Second Hand Smoke Exposure: No Current occupational status: unemployed and disabled Cognitive needs: No Hearing needs: No Vision needs: No Female Reproductive History Menstrual Age of Menarche: 9 Duration of menses: 3-5 days Date of last menstrual period: 12/29/23 control method: none Total pregnancies: 0 Date of last pap smear: 12/30/22 History of abnormal pap smear: Yes (2012) Physical Exam Vital Signs: Last Vital Signs BP 138/74 01/07/24 10:35 BMI result Body Mass Index 48.4 Const General: healthy appearing, comfortable, no acute distress, well developed and alert Nutritional Appearance: average body habitus Orientation/consciousness: patient oriented x3 Limitations: no limitations HEENT Head: Yes normocephalic Neck Neck: Yes normal visual inspection Chest Chest palpation & inspection: normal inspection of the chest Breast/axilla inspection: normal inspection of the breasts and normal inspection of the axillae Breast/axilla palpation: normal palpation of the breasts and normal palpation of the axillae Resp Effort & Inspection: normal respiratory effort GI Inspection: Yes normal to inspection, No Abdominal wall edema and No distended Palpation (GI): Soft to palpation and nontender Other: Cervix was difficult to visualize today and in fact I did not find it with speculum however she was not due for Pap smear so testing for gonorrhea chlamydia trichomoniasis Gardnerella and Niecy was done blindly in the vagina bimanual confirmed that the cervix is nulliparous and very anterior behind symphysis pubis. General: Yes bladder normal to palpation External Female Exam: normal external appearance and normal appearance of the urethra Speculum Exam - Vagina: normal appearance of the vagina, normal palpation and normal vaginal discharge Speculum Exam - Cervix: normal palpation Bimanual exam- vagina & uterus: normal bimanual exam, normal palpation, uterine size normal, bladder normal to palpation, consistency normal, normal palpation, uterine mobility normal, uterine shape normal, non-tender and no cervical motion tenderness Bimanual Exam- Adnexa, other: normal adnexae, no masses, normal and No adnexal tenderness Neuro General: patient oriented x3 Results Reviewed Results Reviewed: Name: Sharmaine Reno Age/Sex: 32/F Attending: Sharmaine Bailey CNM : 1990 Submitted by: Sharmaine Bailey CNM Copies to: Lizz Morse MD MR #: [id number] Status: DEP REF Collected: 12/30/22 Location: [facility] Received: 12/30/22 Interpretation Satisfactory for evaluation. Negative for intraepithelial lesion or malignancy. HPV mRNA E6/E7: NOT DETECTED This assay detects E6/E7 viral messenger RNA (mRNA) from 14 high-risk HPV types (16, 18, 31, 33, 35, 39, 45, 51, 52, 56, 58, 59, 66, 68) HPV testing performed by [facility], [place], [place]. See reference laboratory portion of the EMR for entire report. Clinical Information LMP: Unknown Previous PAP test: 12/18/21, WNL Material Received ThinPrep-Cervical Copies To Lizz Morse MD [facility] [address] [place], [place] [id number] [place] [place], [place] [id number] Electronically Signed By: Gricelda Ingram MD 01/06/23 0334 The Pap Test is a screening procedure with the inherent possibility of both false negative and false positive results. Results should be interpreted in the context of historic and current clinical findings. Reliability of the Pap Test is enhanced by performing the test on a regular repetitive basis. Patient: Sharmaine Reno Age/Sex: 32/F MR#: [id number] Page 1 of 1 Assessment & Plan Assessment & Plan (1) Cervical cancer screening: Comment: Hx of abnormal paps;12/17/21 pap= neg/neg; 12/30/2022 Pap is negative with negative HPV. Code(s): Z12.4 - Encounter for screening for malignant neoplasm of cervix (2) Morbid obesity: Code(s): E66.01 - Morbid (severe) obesity due to excess calories (3) History of dysmenorrhea: Comment: Discussed options will plan for Mirena with next menses. Code(s): Z87.42 - Personal history of other diseases of the female genital tract (4) Well woman exam with routine gynecological exam: Code(s): Z01.419 - Encounter for gynecological examination (general) (routine) without abnormal findings (5) History of tubal ligation: Comment: dr toure Code(s): Z98.51 - Tubal ligation status Plan -----Discussed in this visit the following: healthy balanced diet, regular and consistent exercise, getting recommended health screens, doing the best she can for her particular health concerns, kegel exercises, pap smear screening and followup recommendations, mammography screening and SBE, normal changes in cycles in her life stage--- . Discussed options for dealing with her heavy crampy periods she would like them to go way she does not need control because she had her tubes tied. However she would like to deal with her heavy periods discussed the options of Depo-Provera Nexplanon and a Mirena IU S discussed that it might be challenging to place the Mirena IU S however the Nexplanon and Depo-Provera come also with side effects of weight gain and she is working so hard to lose weight and get healthier that it would be challenging to have something in her body that might make that more challenging. Discussed in detail the other side effects of all of these methods as well we will attempt to place a Mirena IU S with her next menses and if not that menses possibly the 1 after that and aim for the 1st 2 days when her period is the heaviest. Discussed that it might in fact be challenging to place it as it was hard to see her cervix last year and I could not really see it this year but with her menses it maybe a little bit more easy and since I documented and have evidence said it is right behind the symphysis pubis we will take that into account when trying to place it. Orders: Orders CT NG by PCR Today Z01.419 - Encounter for gynecological examination (general) (routine) without abnormal findings Bacterial Vaginosis Panel Today Z01.419 - Encounter for gynecological examination (general) (routine) without abnormal findings Coding Level of Care Code Est Pt Prev Care 18-39y([id number]) Diagnoses Cervical cancer screening Z12.4 Morbid obesity E66.01 History of dysmenorrhea Z87.42 Well woman exam with routine gynecological exam Z01.419 History of tubal ligation Z98.51
== END 2024-01-07 11:47 | disposition home or self-care (01) ==
LOC: HO.HWS 10:33
PROVIDERS: PCP Internal Medicine; Visit Provider Advanced Practice Midwife
DX: Z01.419 Encounter for gynecological examination (general) (routine) without abnormal findings (principal); E66.01 Morbid (severe) obesity due to excess calories; Z87.42 Personal history of other diseases of the female genital tract; Z98.51 Tubal ligation status
CPT/HCPCS: G0101

== ENCOUNTER 2024-01-30 09:34 | Outpatient (AMB) | payer MEDICARE, MEDICAID, SELFPAY ==
[2024-01-30 09:47] VITALS: BP 100/58; BMI 47.3
--- NOTE | 2024-01-30 09:47 | MHC.OFFVIS ---
Intake Vital Signs 01/30/24 09:47 Height 5 ft Weight 242 lb BMI 47.3 BP 100/58 L Intake Visit Reasons: IUD insertion Costuming Supervisor Required: No Information Interpreted: non-clinical & clinical Coating And Embossing Unit Operator: Coating And Embossing Unit Operator Present ([place]) Accompanied by: Program staff Allergies topiramate [From TOPAMAX] Adverse Reaction (Severe, Verified 01/30/24 09:52) ELEVATED LIVER ENZYMES dogs, cats, trees Allergy (Unknown, Uncoded 01/30/24 09:52) Unknown surgical tape Allergy (Unknown, Uncoded 01/30/24 09:52) rash Medication List - Last Reconciled 01/30/24 by Sharmaine Bailey CNM albuterol sulfate 90 mcg/actuation 2 puffs inhalation Q4-6H PRN amlodipine 10 mg PO BEDTIME atenolol 25 mg PO DAILY cholecalciferol (vitamin D3) 25 mcg PO DAILY fluoxetine 20 mg PO QAM fluticasone propion-salmeterol 250-50 mcg/dose 1 ea inhalation BID inhalational spacing device (BreatheRite MDI Spacer) As directed lisinopril 10 mg PO DAILY lubiprostone (Amitiza) 8 mcg PO BID melatonin 12 mg PO BEDTIME PRN montelukast 10 mg PO DAILY multivitamin 1 tab PO DAILY pantoprazole (Protonix) 40 mg PO BID 30 days simethicone 180 mg PO QID 30 days Is last menstrual period known: Yes Last menstrual period: 01/29/24 Post menopausal: No HPI IUD insertion HPI Details Patient is here as planned for a Mirena insertion at the beginning of her menses she gets heavy crampy periods and she would really rather make them better so she is up for this today and does not have any other questions she just wants to get it done. Her periods started yesterday and it is regular crampy and heavy. She is accompanied by a staff worker from where she lives. Her Pap smear and other testing for infections was all negative at the last visit full discussion has taken place. Sharmaine has been working on trying to eat healthy and lose weight and do exercises in her room and with other staff members she is continuing to lose weight is happy about that. [facility] Medical History Well woman exam with routine gynecological exam Environmental and seasonal allergies Numbness of left lower extremity Depression with anxiety Intertrigo Excessive daytime sleepiness Fatigue BRIANA (obstructive sleep apnea) Morbid obesity Anal fissure Constipation Learning disability GERD (gastroesophageal reflux disease) Mild intermittent asthma Essential hypertension Androgenic alopecia Metabolic syndrome X Surgical History History of excision of lesion (05/10/22) History of tubal ligation History of wisdom tooth extraction Hx of cholecystectomy Family History Father Unknown family medical history Mother Cervical cancer Maternal Grandfather Lung disease Maternal Grandmother HTN (hypertension) CAD (coronary artery disease) CVD (cardiovascular disease) Smoker Myocardial infarction Paternal Grandfather Unknown family medical history Paternal Grandmother Unknown family medical history Sister No problems noted. Sister No problems noted. Sister No problems noted. Sister No problems noted. Social History Household Members: Friend(s) Housing: Apartment Alcohol intake: current Alcohol intake frequency: holidays/special occasions only Patient Tobacco Use Status: Never used Tobacco e-Cigarette/Vaping Use: Never Used Second Hand Smoke Exposure: No Current occupational status: unemployed and disabled Cognitive needs: No Hearing needs: No Vision needs: No Female Reproductive History Menstrual Age of Menarche: 9 Date of last menstrual period: 01/29/24 control method: other (tubal ligation) Date of last pap smear: 12/30/22 (negative) Physical Exam Vital Signs: Last Vital Signs BP 100/58 L 01/30/24 09:47 BMI result Body Mass Index 47.3 Other: Bimanual was done and reviewed at the last visit. Her cervix is posterior behind symphysis pubis so patient was elevated at end of bed and since we were able to visualize her cervix multiparous and has heavy menses today External Female Exam: normal external appearance and normal appearance of the urethra Speculum Exam - Vagina: normal appearance of the vagina and normal vaginal discharge Speculum Exam - Cervix: normal appearance of the cervix and Cervical os closed Office Procedures IUD Insert/Removal Details Details: ---Patient is here for her IUD insertion. -my bimanual exam at her last visit was reviewed as was the speculum exam. Because of the position of her cervix bottom of the table was tipped upwards prior, though it was not until the patient did a bridge move on the table that a we were able to see her cervix. Graves speculum was used today. She does have heavy menses today. ---The cervix was cleaned with Betadine. Tenaculum was placed on the cervix slowly to minimize cramping. The uterus was sounded slowly and gently she show a measurement of 7 cm. The IUD was removed from its package, after checking identifying information and lot dates and expiration dates and and gently inserted into the os, as per the IUD insertion procedure. The strings were then trimmed to 3-4 centimetres. The tenaculum was removed and gentle pressure applied with a swab, until any bleeding subsided from the tenaculum sites. (none) The speculum was gently removed. The patient sat up. I Reviewed what to expect, and what indications would necessitate a call. Pt to call for fever, untoward pain or cramping. I reviewed any appropriate backup method. Pt to return for recheck as scheduled. 47225-MEJ Insertion Procedure code (CPT) selection complete Office Meds Mirena 21 mcg/24 hours (8 yrs) 52 mg intrauterine device Performing Provider: Sharmaine Bailey CNM [facility] [place] Administered by: LEWIS Carlin on 01/30/24 10:40 Dose Route Admin Location Dispensed Lot Number Expiration Date [facility] Alkylation Operator 1 device [facility]uterine [facility] device [id number] 05/02/26 [id number] [employer] Results AMB Test Urine AMB Test Urine Negative Last Edit by LEWIS Carlin on 01/30/24 10:42 Results Reviewed Results Reviewed: Laboratory Last Values [facility] Clinic Negative 01/30/24 10:39 e: Sharmaine Reno Age/Sex: 32/F Attending: Sharmaine Bailey CNM : 1990 Submitted by: Sharmaine Bailey CNM Copies to: Lizz Morse MD MR #: [id number] Status: DEP REF Collected: 12/30/22 Location: [facility] Received: 12/30/22 Interpretation Satisfactory for evaluation. Negative for intraepithelial lesion or malignancy. HPV mRNA E6/E7: NOT DETECTED This assay detects E6/E7 viral messenger RNA (mRNA) from 14 high-risk HPV types (16, 18, 31, 33, 35, 39, 45, 51, 52, 56, 58, 59, 66, 68) HPV testing performed by [facility], [place], [place]. See reference laboratory portion of the EMR for entire report. Clinical Information LMP: Unknown Previous PAP test: 12/18/21, WNL Material Received ThinPrep-Cervical Copies To Lizz Morse MD [address] [place] [address] [address] Electronically Signed By: Gricelda Ingram MD 01/06/23 7662 The Pap Test is a screening procedure with the inherent possibility of both false negative and false positive results. Results should be interpreted in the context of historic and current clinical findings. Reliability of the Pap Test is enhanced by performing the test on a regular repetitive basis. Patient: Sharmaine Reno Age/Sex: 32/F MR#: [id number] Page 1 of 1 All testing for STIs was negative the same day.. Assessment & Plan Assessment & Plan (1) Encounter for IUD insertion: Code(s): Z30.430 - Encounter for insertion of intrauterine contraceptive device (2) History of tubal ligation: Comment: dr toure Code(s): Z98.51 - Tubal ligation status (3) Cervical cancer screening: Comment: Hx of abnormal paps;12/17/21 pap= neg/neg; 12/30/2022 Pap is negative with negative HPV. Code(s): Z12.4 - Encounter for screening for malignant neoplasm of cervix (4) Morbid obesity: Code(s): E66.01 - Morbid (severe) obesity due to excess calories (5) History of dysmenorrhea: Comment: Discussed options will plan for Mirena with next menses. Code(s): Z87.42 - Personal history of other diseases of the female genital tract Plan Patient tolerated the procedure really well. She said the cramping was not too bad. I showed her the strings and showed her how long I had left them and explained why they are there and that usually they get shorter over time anyway as the uterus contracts. We will see her in about 6 weeks. Orders: Orders AMB HCG Urine Test Today Z32.02 - Encounter for test, result negative AMB IUD Insertion/Removal - Practice Supplied Today Z30.430 - Encounter for insertion of intrauterine contraceptive device Coding Level of Care Code Est Pt Level 3 (82264) Diagnoses Encounter for IUD insertion Z30.430 History of tubal ligation Z98.51 Cervical cancer screening Z12.4 Morbid obesity E66.01 History of dysmenorrhea Z87.42 CPT Codes Details - CPT: 14994-HGM Insertion ([id number])
== END 2024-01-30 10:46 | disposition home or self-care (01) ==
PROVIDERS: PCP Internal Medicine; Visit Provider Advanced Practice Midwife
DX: Z30.430 Encounter for insertion of intrauterine contraceptive device (principal); Z98.51 Tubal ligation status; Z12.4 Encounter for screening for malignant neoplasm of cervix; E66.01 Morbid (severe) obesity due to excess calories; Z87.42 Personal history of other diseases of the female genital tract
CPT/HCPCS: 58300

== ENCOUNTER → 2024-01-30 09:34 | Outpatient (BNVA) | payer MEDICARE, MEDICAID, SELFPAY | PROVIDERS: PCP Internal Medicine; Visit Provider Advanced Practice Midwife | DX: Z30.430 Encounter for insertion of intrauterine contraceptive device (principal); E66.01 Morbid (severe) obesity due to excess calories; Z87.42 Personal history of other diseases of the female genital tract; Z98.51 Tubal ligation status; Z12.4 Encounter for screening for malignant neoplasm of cervix | CPT/HCPCS: 58300; J7298 ==

== ENCOUNTER 2024-02-19 14:33 | Outpatient (AMB) | payer MEDICARE, MEDICAID, SELFPAY ==
--- NOTE | 2024-02-19 14:38 | A.OFFVIS_ITS ---
Vital Signs 02/19/24 14:40 Height 5 ft Weight 240 lb 4.862 oz BMI 46.9 BP 102/66 Blood Pressure Location Lt brachial Position Sitting Pulse 61 Intake Visit Reasons: 6 month GERD CIC Intake Note: Patient here for 6m f/u GERD, constipation. Stable on Amitiza, Simethicone and Pantoprazole. Patient c/o: reports constipation better. C/o diarrhea but pepto bismol which helps. Behavior Therapist Required: No Accompanied by: Navya Silver binder caser for [facility] Allergies topiramate [From TOPAMAX] Adverse Reaction (Severe, Verified 02/19/24 14:45) ELEVATED LIVER ENZYMES dogs, cats, trees Allergy (Unknown, Uncoded 02/19/24 14:45) Unknown surgical tape Allergy (Unknown, Uncoded 02/19/24 14:45) rash PFSH Medical History Well woman exam with routine gynecological exam Environmental and seasonal allergies Numbness of left lower extremity Depression with anxiety Intertrigo Excessive daytime sleepiness Fatigue BRIANA (obstructive sleep apnea) Morbid obesity Anal fissure Constipation Learning disability GERD (gastroesophageal reflux disease) Mild intermittent asthma Essential hypertension Androgenic alopecia Metabolic syndrome X Surgical History History of excision of lesion (05/10/22) History of tubal ligation History of wisdom tooth extraction Hx of cholecystectomy Family History Father Unknown family medical history Mother Cervical cancer Maternal Grandfather Lung disease Maternal Grandmother HTN (hypertension) CAD (coronary artery disease) CVD (cardiovascular disease) Smoker Myocardial infarction Paternal Grandfather Unknown family medical history Paternal Grandmother Unknown family medical history Sister No problems noted. Sister No problems noted. Sister No problems noted. Sister No problems noted. Social History Household Members: Friend(s) Housing: Apartment Alcohol intake: current Alcohol intake frequency: holidays/special occasions only Patient Tobacco Use Status: Never used Tobacco e-Cigarette/Vaping Use: Never Used Second Hand Smoke Exposure: No Current occupational status: unemployed and disabled Cognitive needs: No Hearing needs: No Vision needs: No Female Reproductive History Menstrual Age of Menarche: 9 Physical Exam Vital Signs: Last Vital Signs Pulse 61 02/19/24 14:40 BP 102/66 02/19/24 14:40 BMI result Body Mass Index 46.9
[2024-02-19 14:40] VITALS: BP 102/66; PULSE 61; BMI 46.9
--- NOTE | 2024-02-19 14:49 | A.OFFVIS_ITS ---
Vital Signs 02/19/24 14:40 Height 5 ft Weight 240 lb 4.862 oz BMI 46.9 BP 102/66 Blood Pressure Location Lt brachial Position Sitting Pulse 61 Intake Visit Reasons: 6 month GERD CIC Allergies topiramate [From TOPAMAX] Adverse Reaction (Severe, Verified 02/19/24 14:45) ELEVATED LIVER ENZYMES dogs, cats, trees Allergy (Unknown, Uncoded 02/19/24 14:45) Unknown surgical tape Allergy (Unknown, Uncoded 02/19/24 14:45) rash HPI HPI 6 month GERD CIC: Details: Assessment & Plan (1) Constipation: Comment: started on Amitiza by February Code(s): K59.00 - Constipation, unspecified Plan: NO changes she continues to do well on her protonix bid, Amitiza 8mcg and simethicone. The only problem is that her pantoprazole keeps getting discontinued off of her medication list but the person with her confirms that she still taking it twice a day. ROV 6 mos. (2) GERD (gastroesophageal reflux disease): Code(s): K21.9 - Gastro-esophageal reflux disease without esophagitis Medications: New pantoprazole (Protonix) 40 mg PO BID 30 days 60 tabs 6RF K21.9 - Gastro- esophageal reflux disease without esophagitis Refilled lubiprostone (Amitiza) 8 mcg PO BID 56 caps 6RF K59.00 - Constipation, unspecified simethicone after meals 180 mg PO QID 30 days 120 caps 6RF R14.0 - Abdominal distension (gaseous) TODAY'S VISIT She is accompanied by a female liquor gallery operator who is supportive She denies any changes to her medical status and she continues to do well on her protonix bid, Amitiza 8mcg and simethicone. With this she remains satisfied with her GI regimen. Return office visit in 6 months [facility] Medical History Well woman exam with routine gynecological exam Environmental and seasonal allergies Numbness of left lower extremity Depression with anxiety Intertrigo Excessive daytime sleepiness Fatigue BRIANA (obstructive sleep apnea) Morbid obesity Anal fissure Constipation Learning disability GERD (gastroesophageal reflux disease) Mild intermittent asthma Essential hypertension Androgenic alopecia Metabolic syndrome X Surgical History History of excision of lesion (05/10/22) History of tubal ligation History of wisdom tooth extraction Hx of cholecystectomy Family History Father Unknown family medical history Mother Cervical cancer Maternal Grandfather Lung disease Maternal Grandmother HTN (hypertension) CAD (coronary artery disease) CVD (cardiovascular disease) Smoker Myocardial infarction Paternal Grandfather Unknown family medical history Paternal Grandmother Unknown family medical history Sister No problems noted. Sister No problems noted. Sister No problems noted. Sister No problems noted. Social History Household Members: Friend(s) Housing: Apartment Alcohol intake: current Alcohol intake frequency: holidays/special occasions only Patient Tobacco Use Status: Never used Tobacco e-Cigarette/Vaping Use: Never Used Second Hand Smoke Exposure: No Current occupational status: unemployed and disabled Cognitive needs: No Hearing needs: No Vision needs: No Female Reproductive History Menstrual Age of Menarche: 9 Review of Systems Const Denies fatigue, Denies fever(s), Denies night sweats, Denies poor appetite and Denies weight loss ENT Reports Normal hearing present, Denies dental pain, Denies dysphagia, Denies hearing loss, Denies mouth pain, Denies odynophagia, Denies throat swelling, Denies tongue swelling and Reports other (Dentition adequate) Card Reports no additional complaints Resp Reports no additional complaints GI Details: Denies abdominal pain, Denies melena, Reports bloating, Denies hematochezia, Reports constipation, Denies GI cramping, Denies dysphagia, Denies excessive flatus, Denies early satiety, Reports heartburn, Denies diarrhea, Denies nausea, Denies odynophagia, Denies vomiting and Denies hematemesis Skin/Breast Denies pruritus, Denies lesions, Denies rash and Denies jaundice Neuro Reports Normal hearing present and Denies Abnormal speech present Endo Denies fatigue Aller/Immun Denies throat swelling and Denies tongue swelling Physical Exam Vital Signs: Last Vital Signs Pulse 61 0418/24 14:40 BP 102/66 02/19/24 14:40 BMI result Body Mass Index 46.9 Const General: cooperative, no acute distress, well developed and well groomed Nutritional Appearance: well nourished and obese Orientation/consciousness: oriented to person, oriented to place and oriented to time Limitations: No language barrier and other limitations HEENT Head: Yes normocephalic and Yes atraumatic Eyes General: appearance normal, both eyes and all related structures Pupils: Equal, round and reactive pupils present Neck Neck: Yes normal visual inspection and Yes no lymphadenopathy Thyroid: Thyroid normal Resp Effort & Inspection: normal respiratory effort and able to speak in complete sentences Auscultation: clear to auscultation bilaterally Cardio Rate: regular rate Rhythm: regular rhythm Heart sounds: Normal, physiologic split S2 sound present Peripheral pulses: radial pulses present and posterior tibial pulses present GI Inspection: No distended, Yes Abdominal panniculus present and Yes obesity Palpation (GI): Soft to palpation, nontender, no guarding, not rigid and No hepatosplenomegaly present Percussion: Yes normal to percussion Auscultation: normal bowel sounds Rectal Exam - Female: deferred Skin General skin exam: no rashes or lesions noted, turgor normal, skin not dry, no jaundice, No spider nevi and no striae Rashes: no rashes Nails: normal Neuro General: oriented to person, oriented to place and oriented to time Cranial nerves: Yes Equal, round and reactive pupils present and Yes Normal hearing present Speech: No Abnormal speech present Extrem General: Yes normal to inspection, No clubbing, No cyanosis and No edema Psych Appearance: grossly normal and well kempt Mental Status: mental status grossly normal Speech and movement: Normal speech and movement present Affect: normal affect Attitude: cooperative Thought process: Normal thought process present and not confabulating Thought content: Normal thought content present Insight: Limited insight present (Psych) Judgement: Limited judgement present (Psych) Assessment & Plan Assessment & Plan (1) GERD (gastroesophageal reflux disease): Code(s): K21.9 - Gastro-esophageal reflux disease without esophagitis Category: Medical (2) Constipation: Comment: started on Amitiza by February Harshal Code(s): K59.00 - Constipation, unspecified Category: Medical Plan She is accompanied by a female liquor gallery operator who is supportive She denies any changes to her medical status and she continues to do well on her protonix bid, Amitiza 8mcg and simethicone. With this she remains satisfied with her GI regimen. Return office visit in 6 months Medications: Refilled lubiprostone (Amitiza) 8 mcg PO BID 56 caps 6RF K59.00 - Constipation, unspecified pantoprazole (Protonix) 40 mg PO BID 60 tabs 0RF 30 days K21.9 - Gastro- esophageal reflux disease without esophagitis simethicone after meals 180 mg PO QID 120 caps 6RF 30 days R14.0 - Abdominal distension (gaseous)
== END 2024-02-19 15:12 | disposition home or self-care (01) ==
PROVIDERS: PCP Internal Medicine; Visit Provider Nurse Practitioner
DX: K21.9 Gastro-esophageal reflux disease without esophagitis (principal); K59.00 Constipation, unspecified
CPT/HCPCS: 99213

== ENCOUNTER → 2024-02-19 14:33 | Outpatient (BNVA) | payer MEDICARE, MEDICAID, SELFPAY | PROVIDERS: PCP Internal Medicine; Visit Provider Nurse Practitioner | DX: K21.9 Gastro-esophageal reflux disease without esophagitis (principal); K59.04 Chronic idiopathic constipation | CPT/HCPCS: 99212 ==

== ENCOUNTER 2024-02-25 11:46 | Outpatient (AMB) | payer MEDICARE, MEDICAID, SELFPAY ==
[2024-02-25 12:04] VITALS: BP 100/60; PULSE 56; O2SAT 96; BMI 47.3
--- NOTE | 2024-02-25 12:04 | A.OFFPC_ITS ---
Vital Signs 02/25/24 12:04 Height 5 ft Weight 242 lb BMI 47.3 BP 100/60 Blood Pressure Location Lt brachial Position Sitting Pulse 56 Pulse Source Pulse Oximeter Pulse Oximetry (%) 96 Oxygen Delivery Method Room Air Intake Visit Reasons: 6M F/U Roderick from 01/08/24 Allergies topiramate [From TOPAMAX] Adverse Reaction (Severe, Verified 02/25/24 13:01) ELEVATED LIVER ENZYMES dogs, cats, trees Allergy (Unknown, Uncoded 02/25/24 13:01) Unknown surgical tape Allergy (Unknown, Uncoded 02/25/24 13:01) rash Medication List - Last Reconciled 02/25/24 by Lizz Morse MD albuterol sulfate 90 mcg/actuation 2 puffs inhalation Q4-6H PRN amlodipine 10 mg PO BEDTIME atenolol 25 mg PO DAILY cholecalciferol (vitamin D3) 25 mcg PO DAILY fluoxetine 20 mg PO QAM fluticasone propion-salmeterol 250-50 mcg/dose 1 ea inhalation BID inhalational spacing device (BreatheRite MDI Spacer) As directed levonorgestrel (Mirena) intrauterine lisinopril 10 mg PO DAILY lubiprostone (Amitiza) 8 mcg PO BID melatonin 12 mg PO BEDTIME PRN montelukast 10 mg PO DAILY multivitamin 1 tab PO DAILY pantoprazole (Protonix) 40 mg PO BID 30 days simethicone 180 mg PO QID 30 days Tobacco use date assessed: 02/25/24 Dental Screening Dental Screen Date: 02/25/24 Did you have a dental visit in the last 12 months?: Yes Did you have a dental problem in the last 6 months where you did not have access to dental care?: Yes Was dental information given to patient?: Patient has dentist HPI 6M F/U Roderick from 01/08/24 HPI Details 34-year-old lady with learning disabilit y, metabolic syndrome, has hypertension, mild intermittent asthma chronic GERD and acquired constipation, is morbidly obese, here today for her follow-up. She has been compliant with taking her medications, has been following recommended diet and has been staying active. She has environmental and seasonal allergies, was being seen at [facility] [place] but now needs to find a new pattern developer as that practice will be closing, per patient's caregiver. She has been receiving immunotherapy now for more than 5 years and is thinking of quitting. Has not been back bothered by her allergies , and asthma has not flared up, rarely needs to use her albuterol inhaler and no longer using her maintenance inhaler Has depression with anxiety currently stable and controlled on fluoxetine 20 mg daily. She is currently is being seen at [facility] for her routine Pap and pelvic exam, up-to-date, and just recently had Mirena IUD inserted 01/20/2024, mainly to stop her heavy menstrual bleed. She was recently seen by [facility], and currently on Amitiza, pantoprazole taken twice a day and simethicone . She has been feeling well, up-to-date with all her vaccinations. [facility] Medical History (Updated 02/25/24 @ 13:47 by Lizz Morse MD) Environmental and seasonal allergies Numbness of left lower extremity Depression with anxiety Intertrigo Excessive daytime sleepiness Fatigue BRIANA (obstructive sleep apnea) Morbid obesity Anal fissure Constipation Learning disability GERD (gastroesophageal reflux disease) Mild intermittent asthma Essential hypertension Androgenic alopecia Metabolic syndrome X Surgical History (Updated 02/25/24 @ 13:13 by Lizz Morse MD) History of excision of lesion (05/10/22) History of tubal ligation History of wisdom tooth extraction Hx of cholecystectomy Family History Father Unknown family medical history Mother Cervical cancer Maternal Grandfather Lung disease Maternal Grandmother HTN (hypertension) CAD (coronary artery disease) CVD (cardiovascular disease) Smoker Myocardial infarction Paternal Grandfather Unknown family medical history Paternal Grandmother Unknown family medical history Sister No problems noted. Sister No problems noted. Sister No problems noted. Sister No problems noted. Social History Household Members: Friend(s) Housing: Apartment Alcohol intake: current Alcohol intake frequency: holidays/special occasions only Patient Tobacco Use Status: Never used Tobacco e-Cigarette/Vaping Use: Never Used Second Hand Smoke Exposure: No Current occupational status: unemployed and disabled Cognitive needs: No Hearing needs: No Vision needs: No Female Reproductive History Menstrual Age of Menarche: 9 control method: progestin IUCD Other: Currently sees [facility] Questionnaire PHQ-9 Over the last 2 weeks, how often have you been bothered by any of the following problems? 1. Little interest or pleasure in doing things: not at all 2. Feeling down, depressed, or hopeless: not at all 3. Trouble falling or staying asleep, or sleeping too much: not at all 4. Feeling tired or having little energy: not at all 5. Poor appetite or overeating: not at all 6. Feeling bad about yourself - or that you are a failure or have let yourself or your family down: not at all 7. Trouble concentrating on things, such as reading the newspaper or watching television: not at all 8. Moving or speaking so slowly that other people could have noticed. Or the opposite - being so fidgety or restless that you have been moving around a lot more than usual: not at all 9. Thoughts that you would be better off or of hurting yourself in some way: not at all Total score: 0 Depression Screening Interpretation: Negative Depression Screening Done: Yes 08881 - PHQ-9 Billing: Yes Source: Developed by Drs. Dario Ramos, Pinky De Jesus, Geo Calero and colleagues, with an educational alberto from [employer]. Thrive Questionnaire Date Thrive assessed: 02/25/24 I am a: Parent/Caregiver What is your living situation today?: I have a steady place to live Within the past 12 months, did the food you bought not last and you didn't have the money to get more?: Often true Within the past 12 months, did you worry whether your food would run out before you got money to buy more?: Often true Do you have trouble paying for medicines?: No Do you have trouble getting transportation to medical appointments?: No Do you have trouble paying your heating and electricity bill?: No Do you have trouble taking care of your child, family member or friend?: No Do you have trouble with day-to-day activities such as bathing, preparing meals, shopping, managing finances, etc.?: No Are you currently unemployed and looking for a job?: No Are you interested in more education?: No THRIVE Score: 2 AUDIT C Alcohol Use Questionnaire (AUDIT-C) 1. How often do you have a drink containing alcohol?: Never Total Score: 0 ELMER-7 AMB Questionnaire ELMER-7 Date ELMER - 7 assessed: 02/25/24 Feeling nervous, anxious, or on edge: 0 = Not at all Not being able to stop or control worryin = Not at all Worrying too much about different things: 0 = Not at all Trouble relaxin = Not at all Being so restless that it is hard to sit still: 0 = Not at all Becoming easily annoyed or irritable: 0 = Not at all Feeling afraid as if something awful might happen: 0 = Not at all Total ELMER-7 score (0-4 normal; 5-9 mild; 10-14 moderate; 15-21 severe): 0 Source: Developed by Drs. Dario Ramos, Pinky De Jesus, Geo Calero and colleagues, with an educational alberto from [employer]. ELMER-7 Assessment Billing ELMER-7 Assessment Tool: ELMER-7 Assessment 15071 ACT Questionnaire In the past 4 weeks, how much of the time did your asthma keep you from getting as much done at work, school or at home?: None of the time During the past 4 weeks, how often have you had shortness of breath?: Not at all During the past 4 weeks, how often did your asthma symptoms wake you up at night or earlier than usual in the morning?: Not at all During the past 4 weeks, how often have you had to use your rescue inhaler or nebulizer medication?: Not at all How would you rate your asthma control during the past 4 weeks?: Completely controlled ACT Interpretation: Negative Score: 25 Review of Systems Const Denies fatigue, Denies fever(s), Denies night sweats and Denies poor appetite Eyes Reports no additional complaints ENT Denies dysphagia, Denies hearing loss, Denies throat swelling and Denies tongue swelling Card Reports no additional complaints Resp Reports no additional complaints GI Details: Denies abdominal pain, Reports bloating, Denies hematochezia, Reports constipation, Denies GI cramping, Denies dysphagia, Denies excessive flatus, Denies early satiety and Reports heartburn Details: History of heavy periods, had recent insertion of Mirena 01/20/2024 Sharmaine [place] Reports no additional complaints Musc Reports no additional complaints Skin/Breast Denies pruritus, Denies lesions, Denies rash and Denies jaundice Neuro Denies Abnormal speech present Psych Reports no additional complaints Endo Denies fatigue Aller/Immun Denies throat swelling and Denies tongue swelling Physical exam (Primary Care) Vital Signs: Last Vital Signs Pulse 56 02/25/24 12:04 BP 100/60 02/25/24 12:04 Pulse Ox 96 02/25/24 12:04 Oxygen Delivery Method Room Air 02/25/24 12:04 BMI result Body Mass Index 47.3 Tobacco/Smoking Status: Tobacco use Status Tobacco use date assessed 02/25/24 02/25/24 12:05 Patient Tobacco Use Status Never used Tobacco 02/25/24 12:05 e-Cigarette/Vaping Use Never Used 02/25/24 12:05 PHQ-9: PHQ-9 Score PHQ-9: Total score 0 02/25/24 13:38 Depression Screening Interpretation: Negative Thrive Assessment: Date of Thrive Assessment Date Thrive assessed 02/25/24 02/25/24 13:38 Advance Care Planning discussion: Completed/Scanned Date of discussion: 02/25/24 Who was present: Patient and caregiver Forms completed: Health Care Proxy Time spent: 16-45 minutes Actual minutes spent: 16 Const Other: Alert oriented x3, ambulatory with a slow gait, no acute cardiorespiratory distress, vertical contour band saw operator present General: no acute distress Nutritional Appearance: obese morbidly obese Orientation/consciousness: patient oriented x3 Limitations: other limitations (poor historian ) [facility] General nose exam: Normal external nose present, Normal nasal mucous membranes and turbinates present and No nasal discharge present Mouth: Normal oral and palatal mucosa present, oropharynx normal and moist mucous membranes Throat: Yes posterior oropharynx normal Eyes General: appearance normal, both eyes and all related structures Neck Neck: Yes full ROM, Yes no lymphadenopathy and Yes supple Resp Effort & Inspection: normal respiratory effort and able to speak in complete sentences Auscultation: clear to auscultation bilaterally Cardio Rate: regular rate Rhythm: regular rhythm Heart sounds: S1 normal heart sound present and S2 normal heart sound present GI Inspection: Yes obesity Palpation (GI): Soft to palpation, nontender and no masses Auscultation: normal bowel sounds Neuro General: patient oriented x3, tone normal, moves all extremities and no focal motor deficits Speech: No Abnormal speech present Gait exam (Neuro): Normal gait present Motor exam (neuro): 5/5 motor strength present throughout Extrem General: Yes full ROM, Yes no joint enlargement, Yes no clubbing, cyanosis or edema and Yes no calf tenderness Psych Appearance: grossly normal and well kempt Mental Status: mental status grossly normal Affect: normal affect Assessment and Plan Assessment & Plan (1) Environmental and seasonal allergies: Comment: previously seeing pattern developer , Dr García now goes to [facility] in [place] Code(s): J30.89 - Other allergic rhinitis Plan: On montelukast 10 mg daily, currently looking for a different pattern developer (2) Depression with anxiety: Code(s): F41.8 - Other specified anxiety disorders Plan: Controlled with fluoxetine 20 mg daily (3) Morbid obesity: Code(s): E66.01 - Morbid (severe) obesity due to excess calories Plan: Eat Mediterranean diet, limit foods high in fat, sugar, and calories, eat slowly, pay attention to portion sizes, plan your meals ahead of time, start regular physical activity 150 minutes of moderate intensity exercise or 90 minutes/week of vigorous exercise (4) Constipation: Comment: started on Amitiza by Ashley Harshal Code(s): K59.00 - Constipation, unspecified Qualifiers: Constipation type: unspecified constipation type Qualified Code(s): K59.00 - Constipation, unspecified Plan: Currently on Amitiza, encouraged to exercise regular and stay well-hydrated (5) GERD (gastroesophageal reflux disease): Code(s): K21.9 - Gastro-esophageal reflux disease without esophagitis Plan: Currently on pantoprazole 40 mg twice a day, followed by [facility] (6) Mild intermittent asthma: Code(s): J45.20 - Mild intermittent asthma, uncomplicated Qualifiers: Asthma complication type: uncomplicated Qualified Code(s): J45.20 - Mild intermittent asthma, uncomplicated Plan: Asthma symptoms stable and well controlled, rarely needing to use her albuterol inhaler, no longer takes maintenance inhaler (7) Essential hypertension: Comment: followed by Dr. Robb Code(s): I10 - Essential (primary) hypertension Plan: Blood pressure at goal of less than 130/80. Continue with current medication. Reinforced importance of following a low sodium diet, getting regular exercise, and lowering stress levels. Medications: Refilled amlodipine 10 mg PO BEDTIME 90 tabs 3RF Coding Level of Care Code Est Pt Level 4 (62914) Diagnoses Environmental and seasonal allergies J30.89 Depression with anxiety F41.8 Morbid obesity E66.01 Constipation, unspecified constipation type K59.00 Constipation type: unspecified constipation type GERD (gastroesophageal reflux disease) K21.9 Mild intermittent asthma without complication J45.20 Asthma complication type: uncomplicated Essential hypertension I10 Additional Codes ELMER-7 Assessment Billing - ELMER-7 Assessment Tool: ELMER-7 Assessment 11983 ([id number]) Vital Signs *Quality* - Advance Care Planning discussion: Completed/Scanned ([id number]) Vital Signs *Quality* - Time spent: 16-45 minutes ([id number])
== END 2024-02-25 13:01 | disposition home or self-care (01) ==
PROVIDERS: PCP Internal Medicine; Visit Provider Internal Medicine
DX: J30.89 Other allergic rhinitis (principal); E66.01 Morbid (severe) obesity due to excess calories; Z68.42 Body mass index [BMI] 45.0-49.9, adult; F41.8 Other specified anxiety disorders; K59.00 Constipation, unspecified; K21.9 Gastro-esophageal reflux disease without esophagitis; Z00.00 Encounter for general adult medical examination without abnormal findings; J45.20 Mild intermittent asthma, uncomplicated; I10 Essential (primary) hypertension
CPT/HCPCS: 1123F; 99214; 99497

== ENCOUNTER 2024-03-19 09:52 | Outpatient (AMB) | payer MEDICARE, MEDICAID, SELFPAY ==
[2024-03-19 10:19] VITALS: BP 110/68; BMI 48.8
--- NOTE | 2024-03-19 10:19 | A.OFFVIS_ITS ---
Vital Signs 03/19/24 10:19 Height 5 ft Weight 250 lb BMI 48.8 BP 110/68 Intake Visit Reasons: IUD Check [employer] Required: No Information Interpreted: clinical only Client Services Associate: Client Services Associate Present Allergies topiramate [From TOPAMAX] Adverse Reaction (Severe, Verified 03/19/24 10:20) ELEVATED LIVER ENZYMES dogs, cats, trees Allergy (Unknown, Uncoded 03/19/24 10:20) Unknown surgical tape Allergy (Unknown, Uncoded 03/19/24 10:20) rash Medication List - Last Reconciled 03/19/24 by Sharmaine Bailey CNM albuterol sulfate 90 mcg/actuation 2 puffs inhalation Q4-6H PRN amlodipine 10 mg PO BEDTIME atenolol 25 mg PO DAILY cholecalciferol (vitamin D3) 25 mcg PO DAILY fluoxetine 20 mg PO QAM inhalational spacing device (BreatheRite MDI Spacer) As directed levonorgestrel (Mirena) intrauterine lisinopril 10 mg PO DAILY lubiprostone (Amitiza) 8 mcg PO BID melatonin 12 mg PO BEDTIME PRN montelukast 10 mg PO DAILY multivitamin 1 tab PO DAILY pantoprazole 40 mg PO BID simethicone 180 mg PO QID 30 days Is last menstrual period known: Yes Last menstrual period: 03/11/24 Do you need a note to return to daycare/school/sports/work: No HPI HPI IUD Check: Details: Patient is here for Mirena check she had the Mirena placed to deal with her heavy crampy periods she has not sexually active she says periods are a little better there not giving her cramps anymore blood is dark but it is planning rn. [facility] Medical History Environmental and seasonal allergies Numbness of left lower extremity Depression with anxiety Intertrigo Excessive daytime sleepiness Fatigue BRIANA (obstructive sleep apnea) Morbid obesity Anal fissure Constipation Learning disability GERD (gastroesophageal reflux disease) Mild intermittent asthma Essential hypertension Androgenic alopecia Metabolic syndrome X Surgical History History of excision of lesion (05/10/22) History of tubal ligation History of wisdom tooth extraction Hx of cholecystectomy Family History Father Unknown family medical history Mother Cervical cancer Maternal Grandfather Lung disease Maternal Grandmother HTN (hypertension) CAD (coronary artery disease) CVD (cardiovascular disease) Smoker Myocardial infarction Paternal Grandfather Unknown family medical history Paternal Grandmother Unknown family medical history Sister No problems noted. Sister No problems noted. Sister No problems noted. Sister No problems noted. Social History Household Members: Friend(s) Housing: Apartment Alcohol intake: current Alcohol intake frequency: holidays/special occasions only Patient Tobacco Use Status: Never used Tobacco e-Cigarette/Vaping Use: Never Used Second Hand Smoke Exposure: No Current occupational status: unemployed and disabled Cognitive needs: No Hearing needs: No Vision needs: No Female Reproductive History Menstrual Age of Menarche: 9 Duration of menses: 3-5 days Date of last menstrual period: 03/11/24 control method: progestin IUCD Total pregnancies: 0 Full term: 0 Date of last pap smear: 12/30/22 (negative,previous pap 2021,neg.) History of abnormal pap smear: Yes (2012) Physical Exam Vital Signs: Last Vital Signs BP 110/68 03/19/24 10:19 BMI result Body Mass Index 48.8 Other: Slightly creamy discharge patient feels it is normal for her and is not having any issues IUD strings visible in nulliparous cervix. External Female Exam: normal external appearance and normal appearance of the urethra Speculum Exam - Vagina: normal appearance of the vagina and normal vaginal discharge Speculum Exam - Cervix: normal appearance of the cervix and Cervical os closed Assessment & Plan Assessment & Plan (1) Cervical cancer screening: Comment: Hx of abnormal paps;12/17/21 pap= neg/neg; 12/30/2022 Pap is negative with negative HPV. Code(s): Z12.4 - Encounter for screening for malignant neoplasm of cervix Category: Medical (2) Morbid obesity: Code(s): E66.01 - Morbid (severe) obesity due to excess calories Category: Medical (3) Encounter for routine checking of intrauterine contraceptive device (IUD): Code(s): Z30.431 - Encounter for routine checking of intrauterine contraceptive device Category: Medical Plan Reviewed her experience of the IUD she is happy with that is improving her menses and she likes pre she is here today with 1 of her worker's from where she lives they both had their nails yesterday discussed continuing to be as healthy as she can exercise and eating well. We will see her next year. Coding Level of Care Code Est Pt Level 3 (15574) Diagnoses Cervical cancer screening Z12.4 Morbid obesity E66.01 Encounter for routine checking of intrauterine contraceptive device (IUD) Z30.431
== END 2024-03-19 10:39 | disposition home or self-care (01) ==
PROVIDERS: PCP Internal Medicine; Visit Provider Advanced Practice Midwife
DX: Z30.431 Encounter for routine checking of intrauterine contraceptive device (principal); E66.01 Morbid (severe) obesity due to excess calories
CPT/HCPCS: 99213

== ENCOUNTER → 2024-03-19 09:52 | Outpatient (BNVA) | payer MEDICARE, MEDICAID, SELFPAY | PROVIDERS: PCP Internal Medicine; Visit Provider Advanced Practice Midwife | DX: Z30.431 Encounter for routine checking of intrauterine contraceptive device (principal); E66.01 Morbid (severe) obesity due to excess calories; Z68.42 Body mass index [BMI] 45.0-49.9, adult | CPT/HCPCS: 99212 ==

== ENCOUNTER 2024-08-09 14:07 | Outpatient (REF) | payer MEDICARE, MEDICAID, SELFPAY ==
[2024-08-09 16:35] LABS: Alanine Aminotransferase 20 U/L (0-31); Albumin Level 3.8 g/dL (3.5-5.0); Alkaline Phosphatase 72 U/L (39-117); Anion Gap 10 (12-20); Aspartate Amino Transferase 17 U/L (5-31); Bilirubin Total 0.3 mg/dL (0.0-1.0); Blood Urea Nitrogen 11 mg/dL (9-16); Carbon Dioxide 25 mmol/L (22-29); Chloride 110 mmol/L (96-108); Estimated Glomerular Filt Rate > 60; Glucose Fasting 89 mg/dL (60-99); Potassium 3.6 mmol/L (3.3-5.1); Sodium 141 mmol/L (135-145); Total Protein 6.9 g/dL (6.5-8.0)
== END 2024-08-09 14:08 | disposition home or self-care (01) ==
LOC: HO.HMGCLDS 14:07
PROVIDERS: PCP Internal Medicine; Visit Provider Internal Medicine
DX: Z51.81 Encounter for therapeutic drug level monitoring (principal)
CPT/HCPCS: 36415; 80053

== ENCOUNTER 2024-08-11 14:20 | Outpatient (AMB) | payer MEDICARE, MEDICAID, SELFPAY ==
--- NOTE | 2024-08-11 14:51 | MHC.OFFWIV ---
Intake Vital Signs 08/11/24 14:58 Height 5 ft Weight 251 lb BMI 49.0 BP 110/68 Blood Pressure Location Rt brachial Position Sitting Pulse 69 Pulse Source Pulse Oximeter Temp 97.5 F Temp Source Oral Pulse Oximetry (%) 98 Intake Visit Reasons: EP-uti Intake Note: Patient here for burning when urinating, frequent urination which has been going on for about 1 week Patient Tobacco Use Status: Never used Tobacco Allergies topiramate [From TOPAMAX] Adverse Reaction (Severe, Verified 08/11/24 14:58) ELEVATED LIVER ENZYMES dogs, cats, trees Allergy (Unknown, Uncoded 08/11/24 14:58) Unknown surgical tape Allergy (Unknown, Uncoded 08/11/24 14:58) rash Do you need a note to return to daycare/school/sports/work: No HPI HPI Comments History of Present Illness Details Patient is a 34-year-old female complaining of 1 week of burning with urination and increased frequency of urination. She denies any low back pain fevers or blood in her urine. She denies any history of kidney stones. [facility] Medical History Environmental and seasonal allergies Numbness of left lower extremity Depression with anxiety Intertrigo Excessive daytime sleepiness Fatigue BRIANA (obstructive sleep apnea) Morbid obesity Anal fissure Constipation Learning disability GERD (gastroesophageal reflux disease) Mild intermittent asthma Essential hypertension Androgenic alopecia Metabolic syndrome X Surgical History History of excision of lesion (05/10/22) History of tubal ligation History of wisdom tooth extraction Hx of cholecystectomy Family History Father Unknown family medical history Mother Cervical cancer Maternal Grandfather Lung disease Maternal Grandmother HTN (hypertension) CAD (coronary artery disease) CVD (cardiovascular disease) Smoker Myocardial infarction Paternal Grandfather Unknown family medical history Paternal Grandmother Unknown family medical history Sister No problems noted. Sister No problems noted. Sister No problems noted. Sister No problems noted. Social History Household Members: Friend(s) Housing: Apartment Alcohol intake: current Alcohol intake frequency: holidays/special occasions only Patient Tobacco Use Status: Never used Tobacco e-Cigarette/Vaping Use: Never Used Second Hand Smoke Exposure: No Current occupational status: unemployed and disabled Cognitive needs: No Hearing needs: No Vision needs: No Female Reproductive History Menstrual Age of Menarche: 9 Review of Systems Const All systems reviewed & are unremarkable except as noted in HPI and below Physical Exam Vital Signs: Last Vital Signs Temp 97.5 F 08/11/24 14:58 Pulse 69 08/11/24 14:58 BP 110/68 08/11/24 14:58 Pulse Ox 98 08/11/24 14:58 BMI result Body Mass Index 49.0 Const General: cooperative, healthy appearing, comfortable and no acute distress Orientation/consciousness: patient oriented x3 HEENT Head: Yes normal to inspection Ears: hearing grossly normal bilaterally General nose exam: Normal external nose present Face and sinus: Yes normal facial exam Neck Neck: Yes normal visual inspection, Yes trachea midline and Yes supple Resp Effort & Inspection: normal respiratory effort and able to speak in complete sentences Skin General skin exam: no rashes or lesions noted Neuro General: patient oriented x3 Psych Appearance: grossly normal Speech and movement: Normal speech and movement present Attitude: cooperative Thought process: Normal thought process present Insight: Good insight present (Psych) Judgement: Good judgement present (Psych) Assessment & Plan Assessment & Plan (1) UTI (urinary tract infection): Code(s): N39.0 - Urinary tract infection, site not specified Qualifiers: Hematuria presence: with hematuria Urinary tract infection type: acute cystitis Qualified Code(s): N30.01 - Acute cystitis with hematuria Plan: UA positive for blood, negative for leukocytes or nitrites but I will treat the patient based on her symptoms. Did educate patient on when to go to the emergency room. Plan See above Medications: New cefuroxime axetil 500 mg PO Q12H 10 tabs 0RF Coding Level of Care Code Est Pt Level 3 (06355) Diagnoses Acute cystitis with hematuria N30.01 Hematuria presence: with hematuria Urinary tract infection type: acute cystitis
[2024-08-11 14:58] VITALS: BP 110/68; PULSE 69; TEMP 36.4; O2SAT 98; BMI 49.0
== END 2024-08-11 15:37 | disposition home or self-care (01) ==
PROVIDERS: PCP Internal Medicine; Visit Provider Physician Assistant
DX: N30.01 Acute cystitis with hematuria (principal)

== ENCOUNTER → 2024-08-11 14:20 | Outpatient (BNVA) | payer MEDICARE, MEDICAID, SELFPAY | PROVIDERS: PCP Internal Medicine; Visit Provider Physician Assistant | DX: N30.01 Acute cystitis with hematuria (principal) | CPT/HCPCS: 99212 ==

== ENCOUNTER → 2024-08-12 09:28 | Outpatient (BNV) | payer MEDICARE, MEDICAID, SELFPAY | PROVIDERS: PCP Internal Medicine; Visit Provider Physician Assistant | DX: Z13.9 Encounter for screening, unspecified (principal) | CPT/HCPCS: 81003 ==

== ENCOUNTER 2024-08-17 10:37 | Outpatient (REF) | payer MEDICARE, MEDICAID, SELFPAY ==
[2024-08-17 14:09] LABS: Alanine Aminotransferase 24 U/L (0-31); Albumin Level 3.9 g/dL (3.5-5.0); Alkaline Phosphatase 76 U/L (39-117); Anion Gap 11 (12-20); Aspartate Amino Transferase 18 U/L (5-31); Bilirubin Total 0.8 mg/dL (0.0-1.0); Blood Urea Nitrogen 9 mg/dL (9-16); Calcium 9.4 mg/dL (8.4-10.2); Carbon Dioxide 28 mmol/L (22-29); Chloride 106 mmol/L (96-108); Estimated Glomerular Filt Rate > 60; Glucose Fasting 93 mg/dL (60-99); Potassium 3.7 mmol/L (3.3-5.1); Sodium 141 mmol/L (135-145)
== END 2024-08-17 10:38 | disposition home or self-care (01) ==
LOC: HO.HMGCLDS 10:37
PROVIDERS: PCP Internal Medicine; Visit Provider Internal Medicine
DX: Z51.81 Encounter for therapeutic drug level monitoring (principal)
CPT/HCPCS: 36415; 80053

== ENCOUNTER 2024-08-31 09:24 | Outpatient (REF) | payer MEDICARE, MEDICAID, SELFPAY ==
[2024-08-31 11:36] LABS: Cholesterol 166 mg/dL (<200); HDL Cholesterol 49 mg/dL (>40); LDL Cholesterol Calculated 96 mg/dL (<100); Triglycerides 107 mg/dL (<150)
== END 2024-08-31 09:25 | disposition home or self-care (01) ==
LOC: HO.HMGCLDS 09:24
PROVIDERS: PCP Internal Medicine; Visit Provider Internal Medicine
DX: E66.01 Morbid (severe) obesity due to excess calories (principal); I10 Essential (primary) hypertension; E88.810 Metabolic syndrome; E88.818 Other insulin resistance
CPT/HCPCS: 36415; 80061

== ENCOUNTER 2024-09-01 10:51 | Outpatient (AMB) | payer MEDICARE, MEDICAID, SELFPAY ==
[2024-09-01 11:13] VITALS: BP 112/80; PULSE 75; O2SAT 97; BMI 49.6
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
== END 2024-09-01 12:00 | disposition home or self-care (01) ==
LOC: HO.HMCC 10:52
PROVIDERS: PCP Internal Medicine; Visit Provider Internal Medicine
DX: Z00.00 Encounter for general adult medical examination without abnormal findings (principal); Z11.3 Encounter for screening for infections with a predominantly sexual mode of transmission; E66.01 Morbid (severe) obesity due to excess calories; Z68.42 Body mass index [BMI] 45.0-49.9, adult; Z91.410 Personal history of adult physical and sexual abuse; F81.9 Developmental disorder of scholastic skills, unspecified; K21.9 Gastro-esophageal reflux disease without esophagitis; J45.20 Mild intermittent asthma, uncomplicated; I10 Essential (primary) hypertension; F41.8 Other specified anxiety disorders; G47.33 Obstructive sleep apnea (adult) (pediatric); Z23 Encounter for immunization

== ENCOUNTER → 2024-09-01 10:51 | Outpatient (BNVA) | payer MEDICARE, MEDICAID, SELFPAY | PROVIDERS: PCP Internal Medicine; Visit Provider Internal Medicine | DX: Z00.00 Encounter for general adult medical examination without abnormal findings (principal); Z23 Encounter for immunization; F81.9 Developmental disorder of scholastic skills, unspecified; K21.9 Gastro-esophageal reflux disease without esophagitis; J45.20 Mild intermittent asthma, uncomplicated; I10 Essential (primary) hypertension; E66.01 Morbid (severe) obesity due to excess calories; F41.8 Other specified anxiety disorders; G47.33 Obstructive sleep apnea (adult) (pediatric); J30.89 Other allergic rhinitis; Z91.410 Personal history of adult physical and sexual abuse | CPT/HCPCS: 90471; 90656; 96127 ==

== ENCOUNTER 2024-11-16 09:37 | Outpatient (AMB) | payer MEDICARE, MEDICAID, SELFPAY ==
[2024-11-16 09:41] VITALS: BP 132/79; PULSE 98; BMI 47.8
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
== END 2024-11-16 11:03 | disposition home or self-care (01) ==
PROVIDERS: PCP Internal Medicine; Visit Provider Nurse Practitioner
DX: K59.00 Constipation, unspecified (principal); K21.9 Gastro-esophageal reflux disease without esophagitis
CPT/HCPCS: 99213

== ENCOUNTER → 2024-11-16 09:37 | Outpatient (BNVA) | payer MEDICARE, MEDICAID, SELFPAY | PROVIDERS: PCP Internal Medicine; Visit Provider Nurse Practitioner | DX: K59.00 Constipation, unspecified (principal); K21.9 Gastro-esophageal reflux disease without esophagitis | CPT/HCPCS: 99212 ==

== ENCOUNTER 2025-01-10 09:52 | Outpatient (AMB) | payer MEDICARE, MEDICAID, SELFPAY ==
[2025-01-10 10:09] VITALS: BP 116/72; BMI 49.8
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
--- OUTSIDE RECORDS SUMMARY | 2025-01-10 10:48 | XMS_ITS | Clinical Summary ---
Author Organization [facility] Facility Address [address] [place] [address] Care Team Providers Care Fagoting Machine Operator Name Role Phone Malik Morse MD Primary Care Provider [phone]- [phone] Medications atenolol (TENORMIN) 25 MG tabletIndicatio ns:End stage renal disease (HCC) Take 1 tablet (25 mg total) by mouth 1 (one) time each day in the evening 28 tablet 3 01/20/2024 Active Family History Medical History Relation Comments Diabetes Father grandfather Heart disease Mother maternal grandmo ther - [place] Hypertension Mother maternal grandmo ther Stroke Mother maternal grandmo ther - CVD Relation Status Comments Father Mother Social History Tobacco Use Types Packs/Day Years Used Date Smoking Tobacco: Never Alcohol Use Standard Drinks/Week Comments No 0 (1 standard drink = 0.6 oz pur e alcohol) Comments Unknown Sex and Gender Information Value Date Recorded Sex Assigned at Not on file Legal Sex Female 4:51 PM EST Gender Identity Not on file Sexual Orientation Not on file Last Filed Vital Signs Vital Sign Reading Time Taken Comments Blood Pressure 98/62 08/02/2019 12:00 PM EDT Pulse 71 08/02/2019 12:00 PM EDT Temperature - - Respiratory Rate - - Oxygen Saturation 99% 08/02/2019 12:00 PM EDT Inhaled Oxygen Concentration - - Weight 111 kg (245 lb 3.1 oz) 08/02/2019 12:00 P M EDT Height 149.9 cm (4' 11 ) 08/02/2019 12:00 PM EDT Body Mass Index 49.52 08/02/2019 12:00 PM EDT Plan of Treatment Health Maintenance Due Date Last Done Comments Pneumococcal Vaccine: Pediat rics (0 to 5 Years) and At-Risk Patients (6 to 64 Years) (1 of 2 - PCV) 01/09/1994 Hepatitis B Vaccine (1 of 3 - 19+ 3-dose series) 01/09 Influenza Vaccine (#1) 2024 Care Teams Fagoting Machine Operator Relationship Specialty Start Date End Date Malik Morse MD [facility] [place] [address] PCP - General 11/13/20
== END 2025-01-10 12:06 | disposition home or self-care (01) ==
PROVIDERS: PCP Internal Medicine; Visit Provider Advanced Practice Midwife
DX: Z01.419 Encounter for gynecological examination (general) (routine) without abnormal findings (principal); N89.8 Other specified noninflammatory disorders of vagina; F81.9 Developmental disorder of scholastic skills, unspecified; Z91.410 Personal history of adult physical and sexual abuse
CPT/HCPCS: 99213; G0101

== ENCOUNTER 2025-01-10 09:52 | Outpatient (REF) | payer MEDICARE, MEDICAID, SELFPAY ==
[2025-01-10 13:14] LABS: HBsAGNum1 0.27 S/CO (0.00-0.99); HIV AB/AG Nonreactive (Nonreactive); HIV Num 1 0.07 S/CO (0.00-0.99); Hepatitis B Surface Antigen Negative (Negative); Syphilis Screen Nonreactive (Nonreactive); ~HepC Num1 0.38 S/CO (0.00-0.79); ~Hepatitis C Antibody Nonreactive (Nonreactive)
--- OUTSIDE RECORDS SUMMARY | 2025-01-10 13:14 | XMS_ITS | Clinical Summary ---
Author Organization [facility] Facility Address [address] [place] [id number] Care Team Providers Care Surveying Technician Name Role Phone Malik Morse MD Primary Care Provider +1- [phone] Medications atenolol (TENORMIN) 25 MG tabletIndicatio ns:End stage renal disease (HCC) Take 1 tablet (25 mg total) by mouth 1 (one) time each day in the evening 28 tablet 3 01/20/2024 Active Family History Medical History Relation Comments Diabetes Father grandfather Heart disease Mother maternal grandmo ther - [place] Hypertension Mother maternal grandmo ther Stroke Mother [...] 01/09 Influenza Vaccine (#1) 2024 Care Teams Surveying Technician Relationship Specialty Start Date End Date Malik Morse MD [facility] [place] [address] PCP - General 11/13/20
[2025-01-10 17:20] LABS: Bacterial Vaginosis PCR POSITIVE (Negative); Candida Group PCR NOT DETECTED (Not Detect); Candida glab krusei PCR NOT DETECTED (Not Detect); Trichomonas vaginalis PCR NOT DETECTED (Not Detect)
[2025-01-10 17:50] LABS: CT PCR DETECTED (Not Detect.); NG PCR NOT DETECTED (Not Detect.)
== END 2025-01-10 09:53 | disposition home or self-care (01) ==
LOC: HO.LAB 09:52
PROVIDERS: PCP Internal Medicine; Visit Provider Advanced Practice Midwife
DX: Z01.419 Encounter for gynecological examination (general) (routine) without abnormal findings (principal); N89.8 Other specified noninflammatory disorders of vagina
CPT/HCPCS: 36415; 81515; 86780; 86803; 87340; 87389; 87491; 87591; 99212; G0101

== ENCOUNTER 2025-01-10 12:07 | Outpatient (REF) | payer MEDICARE, MEDICAID, SELFPAY ==
--- OUTSIDE RECORDS SUMMARY | 2025-01-10 13:47 | XMS_ITS | Clinical Summary ---
Author Organization [facility] Facility Address [address] [place] [address] Care Team Providers Care Space Operations Officer Name Role Phone Malik Morse MD Primary Care Provider +1- [phone] Medications atenolol (TENORMIN) 25 MG tabletIndicatio ns:End stage renal disease (HCC) Take 1 tablet (25 mg total) by mouth 1 (one) time each day in the evening 28 tablet 3 01/20/2024 Active Family History Medical History Relation Comments Diabetes Father grandfather Heart disease Mother maternal grandmo ther - [place] Hypertension Mother maternal grandmo ther Stroke Mother [...] 01/09 Influenza Vaccine (#1) 2024 Care Teams Space Operations Officer Relationship Specialty Start Date End Date Malik Morse MD [facility] [place] [address] PCP - General 11/13/20
== END 2025-01-10 12:08 | disposition home or self-care (01) ==
LOC: HO.LNP 12:07
PROVIDERS: Visit Provider Advanced Practice Midwife
DX: Z13.89 Encounter for screening for other disorder (principal)

== ENCOUNTER 2025-01-27 16:16 | Outpatient (REF) | payer MEDICARE, MEDICAID, SELFPAY ==
[2025-01-28 13:23] LABS: Bacterial Vaginosis PCR NEGATIVE (Negative); Candida Group PCR DETECTED (Not Detect); Candida glab krusei PCR NOT DETECTED (Not Detect); Trichomonas vaginalis PCR NOT DETECTED (Not Detect)
[2025-01-28 13:55] LABS: CT PCR NOT DETECTED (Not Detect.); NG PCR NOT DETECTED (Not Detect.)
== END 2025-01-27 16:17 | disposition home or self-care (01) ==
LOC: HO.LAB 16:16
PROVIDERS: Nurse Practitioner Family; PCP Internal Medicine
DX: N76.0 Acute vaginitis (principal)
CPT/HCPCS: 81003; 81515; 87491; 87591; 99212

== ENCOUNTER 2025-01-27 16:16 | Outpatient (AMB) | payer MEDICARE, MEDICAID, SELFPAY ==
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
[2025-01-27 16:35] VITALS: BP 120/78; PULSE 78; O2SAT 99
--- OUTSIDE RECORDS SUMMARY | 2025-01-27 19:25 | XMS_ITS | Clinical Summary ---
Author Organization [facility] Facility Address [address] [place] [address] Care Team Providers Care Community Placement Worker Name Role Phone Malik Morse MD Primary Care Provider +1- [phone] Medications atenolol (TENORMIN) 25 MG tabletIndicatio ns:End stage renal disease (HCC) Take 1 tablet (25 mg total) by mouth 1 (one) time each day in the evening 28 tablet 3 01/20/2024 Active Family History Medical History Relation Comments Diabetes Father grandfather Heart disease Mother maternal grandmo ther - [place] Hypertension Mother maternal grandmo ther Stroke Mother [...] 01/09 Influenza Vaccine (#1) 2024 Care Teams Community Placement Worker Relationship Specialty Start Date End Date Malik Morse MD [facility] [place] [address] PCP - General 11/13/20
== END 2025-01-27 16:58 | disposition home or self-care (01) ==
PROVIDERS: PCP Internal Medicine; Visit Provider Nurse Practitioner Family
DX: Z13.9 Encounter for screening, unspecified (principal); N76.0 Acute vaginitis

== ENCOUNTER 2025-03-02 11:33 | Outpatient (AMB) | payer MEDICARE, MEDICAID, SELFPAY ==
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
[2025-03-02 12:27] VITALS: BP 102/80; PULSE 67; RESP 16; TEMP 36.8; O2SAT 97; BMI 48.2
--- OUTSIDE RECORDS SUMMARY | 2025-03-02 13:11 | XMS_ITS | Clinical Summary ---
Author Organization [facility] Facility Address [address] [place] [id number] Care Team Providers Care Sap Bpc Developer Name Role Phone Malik Morse MD Primary Care Provider [phone]- [phone] Medications atenolol (TENORMIN) 25 MG tabletIndicatio ns:End stage renal disease (HCC) Take 1 tablet (25 mg total) by mouth 1 (one) time each day in the evening 28 tablet 3 01/20/2024 Active Family History Medical History Relation Comments Diabetes Father grandfather Heart disease Mother maternal grandmo ther - [place] Hypertension Mother maternal grandmo ther Stroke Mother [...] Health Maintenance Due Date Last Done Comments Hepatitis B Vaccine (1 of 3 - 19+ 3-dose series) 01/09 Pneumococcal Vaccine: Peds ( 0 to 5 Years) and At-Risk Patients (6 to 49 Years) (1 of 2 - PCV) 01/09/2007 Influenza Vaccine (Season Ended) 2025 Care Teams Sap Bpc Developer Relationship Specialty Start Date End Date Malik Morse MD [address] [place] [id number] PCP - General 11/13/20
== END 2025-03-02 14:52 | disposition home or self-care (01) ==
LOC: HO.HMCC 11:34
PROVIDERS: PCP Internal Medicine; Visit Provider Internal Medicine
DX: I10 Essential (primary) hypertension (principal); E66.01 Morbid (severe) obesity due to excess calories; Z68.42 Body mass index [BMI] 45.0-49.9, adult; K21.9 Gastro-esophageal reflux disease without esophagitis; Z72.51 High risk heterosexual behavior; F41.8 Other specified anxiety disorders

== ENCOUNTER 2025-03-02 11:33 | Outpatient (REF) | payer MEDICARE, MEDICAID, SELFPAY ==
--- OUTSIDE RECORDS SUMMARY | 2025-03-02 14:22 | XMS_ITS | Clinical Summary ---
Author Organization [facility] Facility Address [address] [place] [address] Care Team Providers Care Track Machine Operator Repairer Name Role Phone Malik Morse MD Primary Care Provider [phone]- [phone] Medications atenolol (TENORMIN) 25 MG tabletIndicatio ns:End stage renal disease (HCC) Take 1 tablet (25 mg total) by mouth 1 (one) time each day in the evening 28 tablet 3 01/20/2024 Active Family History Medical History Relation Comments Diabetes Father grandfather Heart disease Mother maternal grandmo ther - [place] Hypertension Mother maternal grandmo ther Stroke Mother [...] Influenza Vaccine (Season Ended) 2025 Care Teams Track Machine Operator Repairer Relationship Specialty Start Date End Date Malik Morse MD [address] [place] [id number] PCP - General 11/13/20
[2025-03-02 16:05] LABS: MANUAL DIFF FLAG NO
[2025-03-02 16:09] LABS: Basophils Absolute Auto 0.1 X10*3/uL (0.0-0.2); Basophils Percent Auto 0.8 % (0-2); Eosinophils Absolute Auto 0.1 X10*3/uL (0.0-0.4); Eosinophils Percent Auto 1.3 % (0-4); Hematocrit 42.6 % (37.0-47.0); Hemoglobin 13.5 g/dl (12.0-16.0); Imm Gran Abs Auto 0.03 X10*3/uL (0.00-0.03); Imm Gran Pct Auto 0.3 % (0.0-0.4); Lymphocytes Absolute Auto 2.4 X10*3/uL (1.2-4.9); Lymphocytes Percent Auto 24.4 % (20-40); Mean Corpuscular HGB Conc 31.7 g/dl (31.0-35.0); Mean Corpuscular Hemoglobin 27.9 pg (27.0-33.0); Mean Platelet Volume 12.3 fL (9.4-12.3); Monocytes Absolute Auto 0.6 X10*3/uL (0.1-1.2); Monocytes Percent Auto 5.7 % (2-11); Neutrophils Absolute Auto 6.7 x10*3/uL (2.0-8.3); Neutrophils Percent Auto 67.5 % (45-73); Platelet Count 323 X10*3/uL (160-400); Red Blood Count 4.84 X10*6/uL (4.20-5.50); Red Cell Distribution Width 13.1 % (11.0-16.0)
[2025-03-02 16:26] LABS: Alanine Aminotransferase 21 U/L (0-31); Anion Gap 13 (12-20); Aspartate Amino Transferase 25 U/L (5-31); Blood Urea Nitrogen 13 mg/dL (9-16); Calcium 9.6 mg/dL (8.4-10.2); Carbon Dioxide 28 mmol/L (22-29); Chloride 106 mmol/L (96-108); Cholesterol 142 mg/dL (<200); Estimated Glomerular Filt Rate > 60; Glucose Fasting 97 mg/dL (60-99); HDL Cholesterol 48 mg/dL (>40); LDL Cholesterol Calculated 82 mg/dL (<100); Sodium 143 mmol/L (135-145); Triglycerides 61 mg/dL (<150)
== END 2025-03-02 11:34 | disposition home or self-care (01) ==
LOC: HO.HMGCLDS 11:33
PROVIDERS: PCP Internal Medicine; Visit Provider Internal Medicine
DX: E66.01 Morbid (severe) obesity due to excess calories (principal); I10 Essential (primary) hypertension; K21.9 Gastro-esophageal reflux disease without esophagitis; F41.8 Other specified anxiety disorders; E88.810 Metabolic syndrome; Z72.51 High risk heterosexual behavior; Z79.899 Other long term (current) drug therapy; Z13.220 Encounter for screening for lipoid disorders; Z13.1 Encounter for screening for diabetes mellitus
CPT/HCPCS: 36415; 80048; 80061; 84450; 84460; 85025; 96127; 99212

== ENCOUNTER 2025-03-16 16:06 | Outpatient (AMB) | payer MEDICARE, MEDICAID, SELFPAY ==
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
[2025-03-16 16:08] VITALS: BP 110/72; PULSE 79; TEMP 36.9; O2SAT 98; BMI 50.4
== END 2025-03-16 16:30 | disposition home or self-care (01) ==
PROVIDERS: PCP Internal Medicine; Visit Provider Physician Assistant
DX: L23.9 Allergic contact dermatitis, unspecified cause (principal)

== ENCOUNTER → 2025-03-16 16:06 | Outpatient (BNVA) | payer MEDICARE, MEDICAID, SELFPAY | PROVIDERS: PCP Internal Medicine; Visit Provider Physician Assistant | DX: L23.9 Allergic contact dermatitis, unspecified cause (principal) | CPT/HCPCS: 99212 ==

== ENCOUNTER 2025-03-31 15:39 | Outpatient (AMB) | payer MEDICARE, MEDICAID, SELFPAY ==
--- OUTSIDE RECORDS SUMMARY | 2025-03-31 15:40 | XMS_ITS | Clinical Summary ---
Author Organization [facility] Facility Address [address] [place] [id number] Care Team Providers Care Head Cd Reactor Operator Name Role Phone Malik Morse MD Primary Care Provider [phone]- [phone] Medications atenolol (TENORMIN) 25 MG tabletIndicatio ns:End [...] Influenza Vaccine (Season Ended) 2025 Care Teams Head Cd Reactor Operator Relationship Specialty Start Date End Date Malik Morse MD [address] [place] [id number] PCP - General 11/13/20
[2025-03-31 15:51] VITALS: BP 112/80; PULSE 82; TEMP 36.7; O2SAT 98; BMI 50.4
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
== END 2025-03-31 16:36 | disposition home or self-care (01) ==
PROVIDERS: PCP Internal Medicine; Visit Provider Physician Assistant
DX: B86 Scabies (principal)

== ENCOUNTER → 2025-03-31 15:39 | Outpatient (BNVA) | payer MEDICARE, MEDICAID, SELFPAY | PROVIDERS: PCP Internal Medicine; Visit Provider Physician Assistant | DX: B86 Scabies (principal) | CPT/HCPCS: 99212 ==

== ENCOUNTER 2025-04-11 11:05 | Outpatient (AMB) | payer MEDICARE, MEDICAID, SELFPAY ==
[2025-04-11 11:08] VITALS: BP 112/80; BMI 50.4
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
--- OUTSIDE RECORDS SUMMARY | 2025-04-11 12:42 | XMS_ITS | Clinical Summary ---
Author Organization [facility] Facility Address [address] [place] [id number] Care Team Providers Care Healthcare Consultant Name Role Phone Malik Morse MD Primary Care Provider [phone] Medications atenolol (TENORMIN) 25 MG tabletIndicatio ns:End stage renal disease (HCC) Take 1 tablet (25 mg total) by mouth 1 (one) time each day in the evening 28 tablet 3 01/20/2024 Active Family History Medical History Relation Comments Diabetes Father grandfather Heart disease Mother maternal grandmo ther - PR Hypertension Mother maternal grandmo ther Stroke Mother [...] Influenza Vaccine (Season Ended) 2025 Care Teams Healthcare Consultant Relationship Specialty Start Date End Date Malik Morse MD [address] [place] [id number] PCP - General 11/13/20
== END 2025-04-11 11:17 | disposition home or self-care (01) ==
LOC: HO.HWS 11:05
PROVIDERS: PCP Internal Medicine; Visit Provider Obstetrics & Gynecology
DX: N76.0 Acute vaginitis (principal)
CPT/HCPCS: 99213

== ENCOUNTER 2025-04-11 11:05 | Outpatient (REF) | payer MEDICARE, MEDICAID, SELFPAY ==
[2025-04-11 15:52] LABS: Bacterial Vaginosis PCR NEGATIVE (Negative); Candida Group PCR DETECTED (Not Detect); Candida glab krusei PCR NOT DETECTED (Not Detect); Trichomonas vaginalis PCR DETECTED (Not Detect)
[2025-04-11 16:23] LABS: CT PCR NOT DETECTED (Not Detect.); NG PCR NOT DETECTED (Not Detect.)
== END 2025-04-11 11:06 | disposition home or self-care (01) ==
LOC: HO.LNP 11:05
PROVIDERS: PCP Internal Medicine; Visit Provider Obstetrics & Gynecology
DX: N76.0 Acute vaginitis (principal)
CPT/HCPCS: 81515; 87491; 87591; 99212

== ENCOUNTER 2025-09-05 10:46 | Outpatient (REF) | payer MEDICARE, MEDICAID, SELFPAY ==
[2025-09-05 16:18] LABS: Hematocrit 41.7 % (37.0-47.0); Hemoglobin 13.5 g/dl (12.0-16.0)
[2025-09-05 18:54] LABS: Alanine Aminotransferase 20 U/L (0-31); Anion Gap 13 (12-20); Aspartate Amino Transferase 28 U/L (5-31); Blood Urea Nitrogen 11 mg/dL (9-16); Calcium 9.6 mg/dL (8.4-10.2); Carbon Dioxide 24 mmol/L (22-29); Chloride 104 mmol/L (96-108); Cholesterol 145 mg/dL (<200); Estimated Glomerular Filt Rate > 60; HDL Cholesterol 46 mg/dL (>40); Potassium 4.2 mmol/L (3.3-5.1); Sodium 137 mmol/L (135-145); Triglycerides 63 mg/dL (<150)
== END 2025-09-05 10:47 | disposition home or self-care (01) ==
LOC: HO.HMGCLDS 10:46
PROVIDERS: PCP Internal Medicine; Visit Provider Internal Medicine
DX: Z00.01 Encounter for general adult medical examination with abnormal findings (principal); E66.01 Morbid (severe) obesity due to excess calories; F41.8 Other specified anxiety disorders; I10 Essential (primary) hypertension; K21.9 Gastro-esophageal reflux disease without esophagitis; K59.00 Constipation, unspecified; F81.9 Developmental disorder of scholastic skills, unspecified; G47.33 Obstructive sleep apnea (adult) (pediatric); L64.9 Androgenic alopecia, unspecified; J45.20 Mild intermittent asthma, uncomplicated; F32.A Depression, unspecified; F41.9 Anxiety disorder, unspecified; Z79.899 Other long term (current) drug therapy
CPT/HCPCS: 36415; 80048; 80061; 82306; 84450; 84460; 85014; 85018; 96127; 99395

== ENCOUNTER 2025-09-05 10:46 | Outpatient (AMB) | payer MEDICARE, MEDICAID, SELFPAY ==
[2025-09-05 11:49] VITALS: BP 128/88; PULSE 86; RESP 16; TEMP 36.7; O2SAT 98; BMI 43.2
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
--- OUTSIDE RECORDS SUMMARY | 2025-09-05 13:10 | XMS_ITS | Patient Health Record ---
Author Organization [facility] Address [address] [place] [address] Care Team Providers Care Roaster Helper Name Role Phone THOM KIKI Primary Care Provider Naseem Lugo Jr Unavailable Allergies Allergen (clinical drug ingredient) Drug/Non Drug Allergy documented on EMR Reaction Allergy Type Onset Date Status topiramate Topamax Unknown Drug Allergy Active Reason For Referral No Information Medications Medication SIG (Take, Route, Frequency, Duration) Notes Start Date End Date Status hydroCHLOROthiazide Active FLUoxetine HCl Activ e Colace Active ZyrTEC Active Vitamin D Active ProAir HFA 108 (90 Base) MCG/ACT 2 puffs as needed Inhalation every 4 hrs Active Omeprazole 20 MG 1 capsule Orally Onc e a day 09/14/2015 Active Cholesterol Active Multivitamin Active albuterol Active Immunizations Vaccine Route Administration Date Status Comme nts Flu vaccine no Preserv 3 and > Unknown 06/03/2015 Admin istered Problems Problem Type SNOMED Code ICD Code Onset Dates Problem Status W/U Status Risk Notes Problem Epigastric pain (16765806) Epigastric abdominal pain (R10.13) Active confirmed Problem Elevated liver enzymes level (951234734) Elevated liver function tests (R79.89) Active confirmed Problem Elevated liver enzymes level (053281930) Elevated liver enzymes (R74.8) Active confirmed Plan Of Treatment No Information Insurance Providers Payer Name Payer Address Payer Phone Subscriber Number Group Number Insured Name Patient Relationship to Insured Coverage Start Date Coverage End Date [place] [address] [place] [id number] [phone] [id number] SCAR JACKSON Self - patient is the insured [facility] [address] [place] [phone] [id number] JACKSON ABBOTT Self - patient is the insured Medical (General) History Medical History History ICD Code anxiety hypertension asthma elevated cholesterol Surgical History Surgery Date(Month/Year) cholecystectomy 01/2013
--- OUTSIDE RECORDS SUMMARY | 2025-09-05 13:11 | XMS_ITS | Clinical Summary ---
Author Organization [facility] Address [address] [place] [id number] Care Team Providers Care [employer] Sprayer Name Role Phone Malik Morse MD Primary Care Provider [phone] Medications atenolol (TENORMIN) 25 MG tabletIndicatio ns:End stage renal disease (HCC) Take 1 tablet (25 mg total) by mouth 1 (one) time each day in the evening 28 tablet 3 01/20/2024 Active Family History Medical History Relation Comments Diabetes Father grandfather Heart disease Mother maternal grandmo ther - [place] Hypertension Mother maternal grandmo ther Stroke Mother [...] of 2 - PCV) 01/09/2007 Influenza Vaccine (#1) 2025 Care Teams [employer] Sprayer Relationship Specialty Start Date End Date Malik Morse MD [facility] [place] [address] PCP - General 11/13/20
== END 2025-09-05 13:19 | disposition home or self-care (01) ==
PROVIDERS: PCP Internal Medicine; Visit Provider Internal Medicine
DX: Z00.01 Encounter for general adult medical examination with abnormal findings (principal); L64.9 Androgenic alopecia, unspecified; I10 Essential (primary) hypertension; J45.20 Mild intermittent asthma, uncomplicated; K21.9 Gastro-esophageal reflux disease without esophagitis; K59.00 Constipation, unspecified; G47.33 Obstructive sleep apnea (adult) (pediatric); F41.8 Other specified anxiety disorders